=== PATIENT | male | born 1935 | race Caucasian/White ===

== ENCOUNTER 2020-10-04 21:50 | Inpatient (IN) | payer MEDICARE ==
[~2020-10-04] VITALS: Ht 170.2 cm; Wt 95.3 kg
[~2020-10-04 21:50] MED LIST: COUMADIN3 MG PO; DEXILANT60 MG PO; DIOVAN160 MG PO; KOMBIGLYZE XR1 EAC1 PO; LEVOTHYROXINE PO; LOVANZA; TERAZOSIN HCL2 M1 PO; Z.0.ASPIR 8181 MG PO; Z.0.CLONIDINE HCL0.1 PO; Z.0.DIOVAN160 MG PO; Z.0.LIPITOR40 MG PO; Z.0.NIACIN500 MG PO; Z.0.PLAVIX75 MG PO; Z.0.TRILIPIX135 MG PO; [UNRECOGNIZED DRUG - OTHER] PO
[2020-10-04] MEDS ORDERED: ALBUTEROL SULF 0.083% NEB SOLN 3 ML NEB NEB STA (22:01)
[2020-10-04] MEDS ORDERED: IPRATROPIUM BROMIDE 0.02% 2.5 ML NEB NEB ONE (22:15)
[2020-10-04 22:24] LABS: BASOPHILS # (AUTO) 0.1 (0.0-0.1); BASOPHILS % 0.7 % (0.0-1.0); EOSINOPHILS # (AUTO) 0.4 (0.0-0.4); EOSINOPHILS % 3.1 % (0.0-6.0); HEMATOCRIT 37.7 % (38.2-49.6); HEMOGLOBIN 10.8 g/dL (14.0-18.0); LYMPHOCYTES % 17.2 % (18.0-39.1); MEAN CORPUSCULAR HEMOGLOBIN 21.1 pg (28-32); MEAN CORPUSCULAR HGB CONC 28.6 g/dL (31-35); MEAN CORPUSCULAR VOLUME 73.8 fL (81-99); MONOCYTES # (AUTO) 1.4 (0.2-0.8); MONOCYTES % 11.6 % (4.4-11.3); NEUTROPHILS # (AUTO) 7.8 (2.1-6.9); PLATELET COUNT 497 x10e3/uL (140-360); RED BLOOD COUNT 5.11 x10e6/uL (4.3-5.7); RED CELL DISTRIBUTION WIDTH 20.2 % (11.7-14.4)
[2020-10-04 22:41] LABS: ALBUMIN/GLOBULIN RATIO 0.7 (0.8-2.0); ANION GAP 18.6 mmol/L (8-16); CALCIUM 9.4 mg/dL (8.4-10.2); POTASSIUM 4.6 mmol/L (3.5-5.1)
[2020-10-04 22:48] LABS: CREATINE KINASE MB 3.2 ng/mL (0-5.0)
[2020-10-04] MEDS ORDERED: VANCOMYCIN 1GM/NS 250 ML 250 ML IV ONE (23:45)
[2020-10-05] VITALS (8 sets, daily range): BP systolic 112–153; BP diastolic 51–96
[2020-10-05] MEDS ORDERED: Vancomycin IV 1 GM VIAL ONE (00:17)
[2020-10-05] MEDS ORDERED: CEFEPIME HCL 1 GM VIAL ONE (00:18)
[2020-10-05] MEDS ORDERED: SODIUM CHLORIDE 0.9% 250ML 250 ML ONE (00:18)
[2020-10-05] MEDS ORDERED: SODIUM CHLORIDE 0.9% 50ML 50 ML ONE (00:19)
[2020-10-05] MEDS ORDERED: SODIUM CHLORIDE 0.9% 1000ML 1,000 ML IV SCH (00:45)
[2020-10-05] MEDS ORDERED: ACETAMINOPHEN 325 MG TAB PO PRN (00:45)
[2020-10-05] MEDS ORDERED: SODIUM CHLORIDE 0.9% 500ML 500 ML IV ONE (00:45)
[2020-10-05] MEDS ORDERED: SODIUM CHLORIDE FLUSH 10 ML SYR INJ PRN (00:45)
[2020-10-05] MEDS: ALBUTEROL/IPRATROPIUM 3 ML NEB NEB SCH ×6 (02:23→23:35)
[2020-10-05] MEDS ORDERED: ZETIA10 MG PO (04:46)
[2020-10-05] MEDS ORDERED: KOMBIGLYZE XR1 EAC2 PO (04:46)
[2020-10-05] MEDS ORDERED: WARFARIN SODIUM2 MG PO (04:46)
[2020-10-05] MEDS ORDERED: ARICEPT5 MG PO (04:46)
[2020-10-05] MEDS ORDERED: TRICOR145 MG PO (04:46)
[2020-10-05] MEDS ORDERED: WARFARIN SODIUM1 MG PO (04:46)
[2020-10-05] MEDS ORDERED: IRBESARTAN150 MG PO (04:46)
[2020-10-05] MEDS: CEFEPIME 1 GM in SODIUM CHLORIDE 0.9% 50ML 50 ML IV SCH ×3 (05:47→21:39)
[2020-10-05] MEDS ORDERED: METHYLPREDNISOLONE SOD SUCC 40 MG/ML VIAL 1ML IV SCH (06:00)
[2020-10-05 09:23] LABS: CREATINE KINASE MB 3.6 ng/mL (0-5.0)
[2020-10-05] MEDS ORDERED: DEXTROSE 50% SYRINGE 50 ML IV PRN (11:15)
[2020-10-05] MEDS: INSULIN LISPRO 100 UNIT/1 ML 3ML VIAL SQ SCH ×3 (11:30→21:58)
[2020-10-05 11:38] LABS: BASOPHILS % 0.3 % (0.0-1.0); HEMATOCRIT 35.3 % (38.2-49.6); HEMOGLOBIN 10.1 g/dL (14.0-18.0); LYMPHOCYTES # (AUTO) 0.7 (1.0-3.2); LYMPHOCYTES % 9.9 % (18.0-39.1); MEAN CORPUSCULAR HEMOGLOBIN 21.7 pg (28-32); MEAN CORPUSCULAR HGB CONC 28.6 g/dL (31-35); MEAN CORPUSCULAR VOLUME 75.8 fL (81-99); MONOCYTES # (AUTO) 0.2 (0.2-0.8); MONOCYTES % 2.2 % (4.4-11.3); NEUTROPHILS # (AUTO) 6.5 (2.1-6.9); NEUTROPHILS % 87.1 % (38.7-80.0); PLATELET COUNT 456 x10e3/uL (140-360); RED BLOOD COUNT 4.66 x10e6/uL (4.3-5.7); RED CELL DISTRIBUTION WIDTH 19.8 % (11.7-14.4)
[2020-10-05] MEDS ORDERED: FUROSEMIDE INJ 10 MG/ML 4 ML VIAL IV ONE (12:00)
[2020-10-05 12:08] LABS: ALBUMIN 2.7 g/dL (3.5-5.0); ALBUMIN/GLOBULIN RATIO 0.6 (0.8-2.0); ANION GAP 21.1 mmol/L (8-16); CALCIUM 9.1 mg/dL (8.4-10.2); CREATININE, SERUM 1.76 mg/dL (0.72-1.25); POTASSIUM 5.1 mmol/L (3.5-5.1)
[2020-10-05] MEDS: METHYLPREDNISOLONE SOD SUCC 40 MG/ML VIAL 1ML IV SCH ×2 (12:33→21:38)
[2020-10-05] MEDS: LEVOFLOXACIN 250MG/D5W 50ML 50 ML IV SCH (12:33)
[2020-10-05] MEDS ORDERED: WARFARIN SOD 1 MG TAB PO SCH (17:00)
[2020-10-05 17:10] LABS: PROTHROMBIN TIME 110.1 seconds (11.9-14.5)
[2020-10-05 17:11] LABS: INR 14.82
[2020-10-05] MEDS ORDERED: PHYTONADIONE 5 MG TAB PO ONE (19:00)
[2020-10-05] MEDS: ATORVASTATIN 40 MG TAB PO SCH (21:00)
[2020-10-05] MEDS: IRBESARTAN 150 MG TAB PO SCH (21:00)
[2020-10-05] MEDS: DONEPEZIL HCL 5 MG TAB PO SCH (21:00)
[2020-10-05] MEDS ORDERED: PHYTONADIONE 1 MG/0.5 ML AMP INJ ONE (21:00)
[2020-10-05] MEDS ORDERED: PHYTONADIONE 10MG/ML 1 ML ONE (21:37)
[2020-10-05] MEDS: FUROSEMIDE INJ 10 MG/ML 4 ML VIAL IV SCH (21:38)
[2020-10-06] VITALS (7 sets, daily range): BP systolic 121–157; BP diastolic 62–77
[2020-10-06 04:59] LABS: BASOPHILS % 0.1 % (0.0-1.0); HEMATOCRIT 30.1 % (38.2-49.6); HEMOGLOBIN 8.8 g/dL (14.0-18.0); LYMPHOCYTES # (AUTO) 0.7 (1.0-3.2); MEAN CORPUSCULAR HEMOGLOBIN 21.8 pg (28-32); MEAN CORPUSCULAR HGB CONC 29.2 g/dL (31-35); MEAN CORPUSCULAR VOLUME 74.5 fL (81-99); MONOCYTES # (AUTO) 0.9 (0.2-0.8); MONOCYTES % 6.1 % (4.4-11.3); NEUTROPHILS # (AUTO) 12.4 (2.1-6.9); NEUTROPHILS % 88.2 % (38.7-80.0); PLATELET COUNT 431 x10e3/uL (140-360); RED BLOOD COUNT 4.04 x10e6/uL (4.3-5.7); RED CELL DISTRIBUTION WIDTH 19.7 % (11.7-14.4)
[2020-10-06 05:14] LABS: INR 5.28; PROTHROMBIN TIME 49.2 seconds (11.9-14.5)
[2020-10-06 05:21] LABS: ALBUMIN 2.6 g/dL (3.5-5.0); ALBUMIN/GLOBULIN RATIO 0.7 (0.8-2.0); CALCIUM 8.6 mg/dL (8.4-10.2); CREATININE, SERUM 1.95 mg/dL (0.72-1.25)
[2020-10-06] MEDS ORDERED: CEFEPIME HCL 1 GM VIAL ONE (05:22)
[2020-10-06] MEDS: LEVOTHYROXINE SODIUM 75 MCG TAB PO SCH (05:23)
[2020-10-06] MEDS: CEFEPIME 1 GM in SODIUM CHLORIDE 0.9% 50ML 50 ML IV SCH ×3 (05:23→22:21)
[2020-10-06] MEDS: ALBUTEROL/IPRATROPIUM 3 ML NEB NEB SCH ×4 (07:30→22:50)
[2020-10-06] MEDS: INSULIN LISPRO 100 UNIT/1 ML 3ML VIAL SQ SCH ×4 (07:30→21:00)
[2020-10-06] MEDS: EZETIMIBE 10 MG TAB PO SCH (07:34)
[2020-10-06] MEDS: FUROSEMIDE INJ 10 MG/ML 4 ML VIAL IV SCH ×2 (08:16→21:16)
[2020-10-06] MEDS: FENOFIBRATE 200 MG PO SCH (08:16)
[2020-10-06] MEDS: PANTOPRAZOLE SOD 40 MG TABEC PO SCH (08:16)
[2020-10-06] MEDS: METHYLPREDNISOLONE SOD SUCC 40 MG/ML VIAL 1ML IV SCH ×2 (08:16→21:16)
[2020-10-06 08:46] LABS: ANISOCYTOSIS MODERATE; HYPOCHROMASIA SLIGHT; MICROCYTOSIS MODERATE; OVALOCYTES FEW; PLATELET ESTIMATE ADEQUATE; PLATELET MORPHOLOGY COMMENT NORMAL; RBC MORPHOLOGY COMMENT ABNORMAL
[2020-10-06] MEDS: LEVOFLOXACIN 250MG/D5W 50ML 50 ML IV SCH (12:22)
[2020-10-06] MEDS ORDERED: WARFARIN SOD 2 MG TAB PO SCH (17:00)
[2020-10-06] MEDS: DONEPEZIL HCL 5 MG TAB PO SCH (21:00)
[2020-10-06] MEDS: ATORVASTATIN 40 MG TAB PO SCH (21:00)
[2020-10-06] MEDS: IRBESARTAN 150 MG TAB PO SCH (21:00)
[2020-10-07] VITALS (8 sets, daily range): BP systolic 97–152; BP diastolic 51–87
[2020-10-07] MEDS: ALBUTEROL/IPRATROPIUM 3 ML NEB NEB SCH ×6 (03:00→23:55)
[2020-10-07 04:52] LABS: BASOPHILS % 0.1 % (0.0-1.0); HEMATOCRIT 32.2 % (38.2-49.6); HEMOGLOBIN 9.4 g/dL (14.0-18.0); LYMPHOCYTES # (AUTO) 0.7 (1.0-3.2); LYMPHOCYTES % 4.5 % (18.0-39.1); MEAN CORPUSCULAR HEMOGLOBIN 21.5 pg (28-32); MEAN CORPUSCULAR HGB CONC 29.2 g/dL (31-35); MEAN CORPUSCULAR VOLUME 73.5 fL (81-99); MONOCYTES # (AUTO) 0.9 (0.2-0.8); MONOCYTES % 5.8 % (4.4-11.3); NEUTROPHILS # (AUTO) 12.9 (2.1-6.9); NEUTROPHILS % 88.7 % (38.7-80.0); PLATELET COUNT 496 x10e3/uL (140-360); RED BLOOD COUNT 4.38 x10e6/uL (4.3-5.7); RED CELL DISTRIBUTION WIDTH 19.8 % (11.7-14.4)
[2020-10-07 05:16] LABS: ANION GAP 17.8 mmol/L (8-16); CALCIUM 8.8 mg/dL (8.4-10.2); POTASSIUM 4.8 mmol/L (3.5-5.1)
[2020-10-07] MEDS: CEFEPIME 1 GM in SODIUM CHLORIDE 0.9% 50ML 50 ML IV SCH ×3 (05:49→21:08)
[2020-10-07] MEDS: LEVOTHYROXINE SODIUM 75 MCG TAB PO SCH (05:49)
[2020-10-07] MEDS: INSULIN LISPRO 100 UNIT/1 ML 3ML VIAL SQ SCH ×4 (07:30→21:22)
[2020-10-07] MEDS: PANTOPRAZOLE SOD 40 MG TABEC PO SCH (08:27)
[2020-10-07] MEDS: FENOFIBRATE 200 MG PO SCH (08:27)
[2020-10-07] MEDS: FUROSEMIDE INJ 10 MG/ML 4 ML VIAL IV SCH (08:30)
[2020-10-07] MEDS: METHYLPREDNISOLONE SOD SUCC 40 MG/ML VIAL 1ML IV SCH ×2 (08:30→21:08)
[2020-10-07] MEDS: EZETIMIBE 10 MG TAB PO SCH (08:30)
[2020-10-07 08:35] LABS: INR 1.72; PROTHROMBIN TIME 20.5 seconds (11.9-14.5)
[2020-10-07] MEDS: LEVOFLOXACIN 250MG/D5W 50ML 50 ML IV SCH (11:22)
[2020-10-07] MEDS ORDERED: WARFARIN SOD 1 MG TAB PO ONE (11:30)
[2020-10-07] MEDS ORDERED: WARFARIN SOD 1 MG TAB PO SCH (17:00)
[2020-10-07] MEDS ORDERED: WARFARIN SOD 2 MG TAB PO SCH (17:00)
[2020-10-07] MEDS: IRBESARTAN 150 MG TAB PO SCH (21:00)
[2020-10-07] MEDS: DONEPEZIL HCL 5 MG TAB PO SCH (21:00)
[2020-10-07] MEDS: ATORVASTATIN 40 MG TAB PO SCH (21:00)
[2020-10-08] VITALS (8 sets, daily range): BP systolic 108–168; BP diastolic 44–74
[2020-10-08] MEDS: ALBUTEROL/IPRATROPIUM 3 ML NEB NEB SCH ×6 (04:10→23:45)
[2020-10-08] MEDS: CEFEPIME 1 GM in SODIUM CHLORIDE 0.9% 50ML 50 ML IV SCH ×3 (05:09→21:35)
[2020-10-08] MEDS: LEVOTHYROXINE SODIUM 75 MCG TAB PO SCH (05:14)
[2020-10-08 05:16] LABS: BASOPHILS % 0.1 % (0.0-1.0); HEMATOCRIT 32.2 % (38.2-49.6); HEMOGLOBIN 9.5 g/dL (14.0-18.0); LYMPHOCYTES # (AUTO) 0.7 (1.0-3.2); LYMPHOCYTES % 5.7 % (18.0-39.1); MEAN CORPUSCULAR HEMOGLOBIN 21.4 pg (28-32); MEAN CORPUSCULAR HGB CONC 29.5 g/dL (31-35); MEAN CORPUSCULAR VOLUME 72.7 fL (81-99); MONOCYTES # (AUTO) 0.8 (0.2-0.8); MONOCYTES % 6.6 % (4.4-11.3); NEUTROPHILS # (AUTO) 10.8 (2.1-6.9); NEUTROPHILS % 86.2 % (38.7-80.0); PLATELET COUNT 436 x10e3/uL (140-360); RED BLOOD COUNT 4.43 x10e6/uL (4.3-5.7); RED CELL DISTRIBUTION WIDTH 19.8 % (11.7-14.4)
[2020-10-08 05:50] LABS: ANION GAP 17.8 mmol/L (8-16); CALCIUM 8.9 mg/dL (8.4-10.2); CREATININE, SERUM 1.85 mg/dL (0.72-1.25); POTASSIUM 4.8 mmol/L (3.5-5.1)
[2020-10-08 07:13] LABS: INR 1.96; PROTHROMBIN TIME 22.7 seconds (11.9-14.5)
[2020-10-08] MEDS: PANTOPRAZOLE SOD 40 MG TABEC PO SCH (08:58)
[2020-10-08] MEDS: FENOFIBRATE 200 MG PO SCH (08:58)
[2020-10-08] MEDS: INSULIN LISPRO 100 UNIT/1 ML 3ML VIAL SQ SCH ×4 (08:59→22:14)
[2020-10-08] MEDS: METHYLPREDNISOLONE SOD SUCC 40 MG/ML VIAL 1ML IV SCH ×2 (08:59→21:34)
[2020-10-08] MEDS: EZETIMIBE 10 MG TAB PO SCH (09:01)
[2020-10-08] MEDS: LEVOFLOXACIN 250MG/D5W 50ML 50 ML IV SCH (12:27)
[2020-10-08 16:10] LABS: PHOSPHORUS 2.6 MG/DL (2.3-4.7)
[2020-10-08] MEDS: IRBESARTAN 150 MG TAB PO SCH (21:00)
[2020-10-08] MEDS: ATORVASTATIN 40 MG TAB PO SCH (21:00)
[2020-10-08] MEDS: DONEPEZIL HCL 5 MG TAB PO SCH (21:00)
[2020-10-08 21:42] LABS: EOSINOPHIL SMEAR,URINE NONE SEEN (NONE SEEN)
[2020-10-08 21:56] LABS: CREATININE,URINE RANDOM 67.49 mg/dL (63-166)
[2020-10-08] MEDS: INSULIN GLARGINE 100 UNITS/ML VIAL SQ SCH (22:14)
[2020-10-09] VITALS (8 sets, daily range): BP systolic 115–177; BP diastolic 55–98
[2020-10-09] MEDS: ALBUTEROL/IPRATROPIUM 3 ML NEB NEB SCH ×6 (00:30→19:15)
[2020-10-09 05:00] LABS: BASOPHILS % 0.1 % (0.0-1.0); HEMATOCRIT 31.1 % (38.2-49.6); HEMOGLOBIN 9.4 g/dL (14.0-18.0); LYMPHOCYTES # (AUTO) 0.7 (1.0-3.2); LYMPHOCYTES % 5.5 % (18.0-39.1); MEAN CORPUSCULAR HEMOGLOBIN 21.6 pg (28-32); MEAN CORPUSCULAR HGB CONC 30.2 g/dL (31-35); MEAN CORPUSCULAR VOLUME 71.3 fL (81-99); MONOCYTES # (AUTO) 0.8 (0.2-0.8); MONOCYTES % 6.3 % (4.4-11.3); NEUTROPHILS # (AUTO) 10.9 (2.1-6.9); NEUTROPHILS % 86.5 % (38.7-80.0); PLATELET COUNT 502 x10e3/uL (140-360); RED BLOOD COUNT 4.36 x10e6/uL (4.3-5.7); RED CELL DISTRIBUTION WIDTH 19.7 % (11.7-14.4)
[2020-10-09 05:16] LABS: INR 2.09; PROTHROMBIN TIME 23.8 seconds (11.9-14.5)
[2020-10-09 05:30] LABS: ANION GAP 16.2 mmol/L (8-16); CALCIUM 9.2 mg/dL (8.4-10.2); CREATININE, SERUM 1.56 mg/dL (0.72-1.25); POTASSIUM 5.2 mmol/L (3.5-5.1)
[2020-10-09] MEDS: CEFEPIME 1 GM in SODIUM CHLORIDE 0.9% 50ML 50 ML IV SCH ×3 (06:00→22:32)
[2020-10-09] MEDS: LEVOTHYROXINE SODIUM 75 MCG TAB PO SCH (06:00)
[2020-10-09] MEDS: FENOFIBRATE 200 MG PO SCH (09:00)
[2020-10-09] MEDS: METHYLPREDNISOLONE SOD SUCC 40 MG/ML VIAL 1ML IV SCH ×2 (09:56→20:46)
[2020-10-09] MEDS: PANTOPRAZOLE SOD 40 MG TABEC PO SCH (09:56)
[2020-10-09] MEDS: EZETIMIBE 10 MG TAB PO SCH (09:56)
[2020-10-09] MEDS: INSULIN LISPRO 100 UNIT/1 ML 3ML VIAL SQ SCH ×4 (10:10→20:57)
[2020-10-09] MEDS: LEVOFLOXACIN 250MG/D5W 50ML 50 ML IV SCH (11:56)
[2020-10-09] MEDS: IRBESARTAN 150 MG TAB PO SCH (20:46)
[2020-10-09] MEDS: ATORVASTATIN 40 MG TAB PO SCH (20:46)
[2020-10-09] MEDS: DONEPEZIL HCL 5 MG TAB PO SCH (20:46)
[2020-10-09] MEDS: INSULIN GLARGINE 100 UNITS/ML VIAL SQ SCH (22:33)
[2020-10-10] VITALS: BP 138/58
[2020-10-10 04:00] VITALS: BP 139/64
[2020-10-10 05:53] LABS: BASOPHILS % 0.1 % (0.0-1.0); HEMATOCRIT 30.2 % (38.2-49.6); LYMPHOCYTES # (AUTO) 0.8 (1.0-3.2); LYMPHOCYTES % 6.3 % (18.0-39.1); MEAN CORPUSCULAR HEMOGLOBIN 21.5 pg (28-32); MEAN CORPUSCULAR HGB CONC 29.8 g/dL (31-35); MEAN CORPUSCULAR VOLUME 72.1 fL (81-99); MONOCYTES # (AUTO) 0.9 (0.2-0.8); MONOCYTES % 7.1 % (4.4-11.3); NEUTROPHILS # (AUTO) 10.9 (2.1-6.9); NEUTROPHILS % 83.8 % (38.7-80.0); PLATELET COUNT 493 x10e3/uL (140-360); RED BLOOD COUNT 4.19 x10e6/uL (4.3-5.7); RED CELL DISTRIBUTION WIDTH 19.9 % (11.7-14.4)
[2020-10-10 06:39] LABS: ANION GAP 14.1 mmol/L (8-16); CALCIUM 9.4 mg/dL (8.4-10.2); CREATININE, SERUM 1.42 mg/dL (0.72-1.25); POTASSIUM 5.1 mmol/L (3.5-5.1)
[2020-10-10] MEDS: LEVOTHYROXINE SODIUM 75 MCG TAB PO SCH (06:39)
[2020-10-10] MEDS: CEFEPIME 1 GM in SODIUM CHLORIDE 0.9% 50ML 50 ML IV SCH ×2 (06:39→14:41)
[2020-10-10] MEDS: ALBUTEROL/IPRATROPIUM 3 ML NEB NEB SCH ×3 (07:21→15:00)
[2020-10-10 07:33] LABS: INR 1.76; PROTHROMBIN TIME 20.8 seconds (11.9-14.5)
[2020-10-10 08:00] VITALS: BP 139/64
[2020-10-10 08:02] VITALS: BP 166/64
[2020-10-10 08:45] LABS: RBC MORPHOLOGY COMMENT ABNORMAL
[2020-10-10 08:48] LABS: ELLIPTOCYTE, RBC MODERATE; MICROCYTOSIS MARKED; POIKILOCYTOSIS MODERATE
[2020-10-10] MEDS: FENOFIBRATE 200 MG PO SCH (10:27)
[2020-10-10] MEDS: PANTOPRAZOLE SOD 40 MG TABEC PO SCH (10:27)
[2020-10-10] MEDS: METHYLPREDNISOLONE SOD SUCC 40 MG/ML VIAL 1ML IV SCH (10:27)
[2020-10-10] MEDS: EZETIMIBE 10 MG TAB PO SCH (10:28)
[2020-10-10] MEDS: INSULIN LISPRO 100 UNIT/1 ML 3ML VIAL SQ SCH ×2 (10:29→14:43)
[2020-10-10 11:24] VITALS: BP 167/61
[2020-10-10] MEDS: LEVOFLOXACIN 250MG/D5W 50ML 50 ML IV SCH (12:00)
[2020-10-10 14:06] LABS: BODY FLUID APPEARANCE TURBID; BODY FLUID COLOR RED; BODY FLUID TYPE PLEURAL; RBC,BODY FLUID 1472000 cells/uL; WBC,BODY FLUID 1041 cells/uL
[2020-10-10 14:07] LABS: EOSINOPHILS,BODY FLUID 2 %; LYMPHOCYTES,BODY FLUID 61 %; MONO/MACROPHG,BODY FLUID 9 %; NEUTROPHILS,BODY FLUID 28 %
[2020-10-10] MEDS ORDERED: COVID-19 VACC, MRNA(MODERNA)/PF 100 MCG/0.5 ML VIAL IM ONE (15:00)
[2020-10-10] MEDS ORDERED: KEFLEX125 MG/5 M PO (15:02)
[2020-10-10 15:25] VITALS: BP 151/85
[2020-10-13 16:09] LABS: ALPHA 2 GLOBULIN URINE PEP 8.8 % (.)
== END 2020-10-10 17:50 | disposition home or self-care (01) | DRG 871 ==
LOC: ER 22:03 → ERHOLD 10-05 02:10 → MED/SURG 10-05 03:06
PROC: 0W993ZZ Drainage of Right Pleural Cavity, Percutaneous Approach (ICD-10-PCS; principal; 2020-10-10)
DX: A41.9 Sepsis, unspecified organism (principal); I50.33 Acute on chronic diastolic (congestive) heart failure; J15.6 Pneumonia due to other Gram-negative bacteria; N17.9 Acute kidney failure, unspecified; I13.0 Hypertensive heart and chronic kidney disease with heart failure and stage 1 through stage 4 chronic kidney disease, or unspecified chronic kidney disease; J44.0 Chronic obstructive pulmonary disease with (acute) lower respiratory infection; J90 Pleural effusion, not elsewhere classified; D68.9 Coagulation defect, unspecified; R65.20 Severe sepsis without septic shock; Z79.01 Long term (current) use of anticoagulants; Z95.2 Presence of prosthetic heart valve; E11.22 Type 2 diabetes mellitus with diabetic chronic kidney disease; N18.30 Chronic kidney disease, stage 3 unspecified; I25.10 Atherosclerotic heart disease of native coronary artery without angina pectoris; E87.6 Hypokalemia; E78.5 Hyperlipidemia, unspecified; Z87.891 Personal history of nicotine dependence; F06.8 Other specified mental disorders due to known physiological condition; I48.0 Paroxysmal atrial fibrillation; K21.9 Gastro-esophageal reflux disease without esophagitis; Z20.822 Contact with and (suspected) exposure to COVID-19
CPT/HCPCS: 32555; 36415; 71045; 71046; 76770; 80048; 80053; 81015; 82550; 82553; 82570; 82948; 83605; 83735; 83880; 84100; 84166; 84443; 84484; 84550; 85025; 85610; 86021; 86160; 86431; 87040; 87070; 87205; 87340; 88112; 88305; 89051; 91301; 93005; 93306; 94640; 96367; 96372; 96375; 96376; 97139; 99251; 99284; J0692; J1815; J1940; J1956; J2920; J3370; J3430; J7030; J7040; J7050; U0002

== ENCOUNTER 2021-10-28 10:26 | Emergency (ER) | payer MEDICARE ==
[~2021-10-28] VITALS: Ht 322.6 cm; Wt 95.3 kg
[~2021-10-28 10:26] MED LIST changes: +ARICEPT5 MG PO; +IRBESARTAN150 MG PO; +KEFLEX125 MG/5 M PO; +KOMBIGLYZE XR1 EAC2 PO; +TRICOR145 MG PO; +WARFARIN SODIUM1 MG PO; +WARFARIN SODIUM2 MG PO; +ZETIA10 MG PO
[2021-10-28] MEDS ORDERED: SODIUM CHLORIDE 0.9% 500ML 500 ML IV ONE (10:45)
[2021-10-28 11:12] LABS: BASOPHILS % 0.6 % (0.0-1.0); EOSINOPHILS # (AUTO) 0.1 (0.0-0.4); EOSINOPHILS % 1.7 % (0.0-6.0); HEMATOCRIT 38.4 % (38.2-49.6); HEMOGLOBIN 11.4 g/dL (14.0-18.0); LYMPHOCYTES # (AUTO) 1.1 (1.0-3.2); LYMPHOCYTES % 14.9 % (18.0-39.1); MEAN CORPUSCULAR HEMOGLOBIN 22.2 pg (28-32); MEAN CORPUSCULAR HGB CONC 29.7 g/dL (31-35); MEAN CORPUSCULAR VOLUME 74.9 fL (81-99); MONOCYTES # (AUTO) 1.3 (0.2-0.8); MONOCYTES % 18.1 % (4.4-11.3); NEUTROPHILS # (AUTO) 4.6 (2.1-6.9); NEUTROPHILS % 64.4 % (38.7-80.0); PLATELET COUNT 276 x10e3/uL (140-360); RED BLOOD COUNT 5.13 x10e6/uL (4.3-5.7); RED CELL DISTRIBUTION WIDTH 19.8 % (11.7-14.4)
[2021-10-28 11:25] LABS: INR 1.77
[2021-10-28 11:26] LABS: PARTIAL THROMBOPLASTIN TIME 58.8 seconds (23.8-35.5)
[2021-10-28 11:35] LABS: ALBUMIN 3.1 g/dL (3.5-5.0); ALBUMIN/GLOBULIN RATIO 0.8 (0.8-2.0); ANION GAP 17.4 mmol/L (8-16); CALCIUM 8.9 mg/dL (8.4-10.2); CREATININE, SERUM 1.63 mg/dL (0.72-1.25); MAGNESIUM 1.8 MG/DL (1.3-2.1); POTASSIUM 4.4 mmol/L (3.5-5.1)
[2021-10-28 11:42] LABS: CREATINE KINASE MB 1.9 ng/mL (0-5.0)
[2021-10-28 12:06] LABS: CLARITY,URINE CLEAR (CLEAR); COLOR,URINE YELLOW (YELLOW); KETONES,URINE NEGATIVE (NEGATIVE); LEUKOCYTE ESTERASE ,URINE NEGATIVE (NEGATIVE); NITRITE,URINE NEGATIVE (NEGATIVE); PROTEIN,URINE DIPSTICK 2+ (NEGATIVE); URINE UROBILINOGEN 0.2 mg/dL (0.2 - 1)
[2021-10-28 12:14] LABS: BACTERIA,URINE FEW /HPF; EPITHELIAL CELLS,URINE FEW /LPF; RBC,URINE 0-5 /HPF (0-5); WBC,URINE (MAN) 0-5 /HPF (0-5)
[2021-10-28] MEDS ORDERED: DEXAMETHASONE SOD PHOS 10 MG/1 ML VIAL IV NR (12:45)
[2021-10-28] MEDS ORDERED: BEBTELOVIMAB 175 MG INJ IV ONE (12:45)
== END 2021-10-28 13:58 | disposition home or self-care (01) ==
LOC: ER 10:33
DX: R50.9 Fever, unspecified (principal); U07.1 COVID-19; R05.9 Cough, unspecified; E11.9 Type 2 diabetes mellitus without complications; E78.5 Hyperlipidemia, unspecified; I48.91 Unspecified atrial fibrillation; J44.9 Chronic obstructive pulmonary disease, unspecified; Z95.4 Presence of other heart-valve replacement; G30.9 Alzheimer's disease, unspecified; F02.80 Dementia in other diseases classified elsewhere, unspecified severity, without behavioral disturbance, psychotic disturbance, mood disturbance, and anxiety; G20 Parkinson's disease; R94.31 Abnormal electrocardiogram [ECG] [EKG]
CPT/HCPCS: 36415; 70450; 71045; 80053; 81001; 82550; 82553; 82948; 83735; 83880; 84484; 85025; 85610; 85730; 87040; 87071; 87086; 87205; 93005; 99284; J1100; J7040; U0002

== ENCOUNTER 2022-03-29 12:33 | Emergency (ER) | payer MEDICARE, OTHER ==
[~2022-03-29] VITALS: Ht 170.2 cm; Wt 95.3 kg
[2022-03-29 14:08] LABS: BASOPHILS % 0.4 % (0.0-1.0); EOSINOPHILS # (AUTO) 0.1 (0.0-0.4); EOSINOPHILS % 0.7 % (0.0-6.0); HEMATOCRIT 32.1 % (38.2-49.6); HEMOGLOBIN 9.2 g/dL (14.0-18.0); LYMPHOCYTES # (AUTO) 1.3 (1.0-3.2); LYMPHOCYTES % 11.6 % (18.0-39.1); MEAN CORPUSCULAR HEMOGLOBIN 24.9 pg (28-32); MEAN CORPUSCULAR HGB CONC 28.7 g/dL (31-35); MEAN CORPUSCULAR VOLUME 86.8 fL (81-99); MONOCYTES # (AUTO) 1.3 (0.2-0.8); MONOCYTES % 11.9 % (4.4-11.3); NEUTROPHILS # (AUTO) 8.3 (2.1-6.9); NEUTROPHILS % 75.1 % (38.7-80.0); PLATELET COUNT 422 x10e3/uL (140-360); RED CELL DISTRIBUTION WIDTH 20.2 % (11.7-14.4)
[2022-03-29 14:21] LABS: INR 3.52; PROTHROMBIN TIME 35.3 seconds (11.9-14.5)
[2022-03-29 14:29] LABS: ALBUMIN/GLOBULIN RATIO 0.8 (0.8-2.0); ANION GAP 15.3 mmol/L (8-16); CALCIUM 9.3 mg/dL (8.4-10.2); CREATININE, SERUM 1.57 mg/dL (0.72-1.25); POTASSIUM 4.3 mmol/L (3.5-5.1)
[2022-03-29] MEDS ORDERED: MIRALAX17 GM PO (16:03)
== END 2022-03-29 17:03 | disposition home or self-care (01) ==
LOC: ER 12:45
DX: S70.12XA Contusion of left thigh, initial encounter (principal); W01.0XXA Fall on same level from slipping, tripping and stumbling without subsequent striking against object, initial encounter; Y93.01 Activity, walking, marching and hiking; Y92.89 Other specified places as the place of occurrence of the external cause; K59.00 Constipation, unspecified; K40.90 Unilateral inguinal hernia, without obstruction or gangrene, not specified as recurrent; E11.65 Type 2 diabetes mellitus with hyperglycemia; E78.5 Hyperlipidemia, unspecified; J44.9 Chronic obstructive pulmonary disease, unspecified; I48.91 Unspecified atrial fibrillation; G30.9 Alzheimer's disease, unspecified; F02.80 Dementia in other diseases classified elsewhere, unspecified severity, without behavioral disturbance, psychotic disturbance, mood disturbance, and anxiety; G20 Parkinson's disease; R94.31 Abnormal electrocardiogram [ECG] [EKG]; Z95.1 Presence of aortocoronary bypass graft
CPT/HCPCS: 36415; 70450; 72192; 80053; 84484; 85025; 85610; 93005; 99284

== ENCOUNTER 2022-05-15 00:26 | Emergency (ER) | payer MEDICARE ==
[~2022-05-15] VITALS: Ht 170.2 cm; Wt 95.3 kg
[~2022-05-15 00:26] MED LIST changes: +MIRALAX17 GM PO
[2022-05-15 01:03] LABS: BASOPHILS # (AUTO) 0.1 (0.0-0.1); BASOPHILS % 0.8 % (0.0-1.0); EOSINOPHILS # (AUTO) 0.3 (0.0-0.4); EOSINOPHILS % 3.2 % (0.0-6.0); HEMATOCRIT 30.1 % (38.2-49.6); HEMOGLOBIN 8.4 g/dL (14.0-18.0); LYMPHOCYTES # (AUTO) 1.5 (1.0-3.2); LYMPHOCYTES % 17.5 % (18.0-39.1); MEAN CORPUSCULAR HEMOGLOBIN 23.8 pg (28-32); MEAN CORPUSCULAR HGB CONC 27.9 g/dL (31-35); MEAN CORPUSCULAR VOLUME 85.3 fL (81-99); MONOCYTES # (AUTO) 1.1 (0.2-0.8); MONOCYTES % 12.7 % (4.4-11.3); NEUTROPHILS # (AUTO) 5.6 (2.1-6.9); NEUTROPHILS % 65.5 % (38.7-80.0); PLATELET COUNT 484 x10e3/uL (140-360); RED BLOOD COUNT 3.53 x10e6/uL (4.3-5.7); RED CELL DISTRIBUTION WIDTH 19.8 % (11.7-14.4)
[2022-05-15 01:21] LABS: ALBUMIN 2.5 g/dL (3.5-5.0); ALBUMIN/GLOBULIN RATIO 0.6 (0.8-2.0); ANION GAP 15.6 mmol/L (8-16); CALCIUM 9.3 mg/dL (8.4-10.2); CREATININE, SERUM 1.03 mg/dL (0.72-1.25); POTASSIUM 4.6 mmol/L (3.5-5.1)
== END 2022-05-15 06:42 | disposition home or self-care (01) ==
LOC: ER 00:30
DX: R05.9 Cough, unspecified (principal); Z20.822 Contact with and (suspected) exposure to COVID-19; E11.9 Type 2 diabetes mellitus without complications; E78.5 Hyperlipidemia, unspecified; I48.91 Unspecified atrial fibrillation; J44.9 Chronic obstructive pulmonary disease, unspecified; Z95.4 Presence of other heart-valve replacement; G20 Parkinson's disease; G30.9 Alzheimer's disease, unspecified; F02.80 Dementia in other diseases classified elsewhere, unspecified severity, without behavioral disturbance, psychotic disturbance, mood disturbance, and anxiety; Z95.1 Presence of aortocoronary bypass graft
CPT/HCPCS: 36415; 71046; 80053; 85025; 87400; 99283; U0002

== ENCOUNTER 2024-05-21 21:08 | Inpatient (IN) | payer MEDICARE ==
[~2024-05-21] VITALS: Ht 170.2 cm; Wt 68.3 kg
[2024-05-21 21:08] VITALS: TEMP 98.3
[2024-05-21 21:48] LABS: BASOPHILS # (AUTO) 0.1 (0.0-0.1); BASOPHILS % 0.5 % (0.0-1.0); EOSINOPHILS # (AUTO) 0.2 (0.0-0.4); EOSINOPHILS % 1.8 % (0.0-6.0); HEMATOCRIT 33.8 % (38.2-49.6); HEMOGLOBIN 10.4 g/dL (14.0-18.0); LYMPHOCYTES # (AUTO) 0.8 (1.0-3.2); LYMPHOCYTES % 8.9 % (18.0-39.1); MEAN CORPUSCULAR HEMOGLOBIN 24.5 pg (28-32); MEAN CORPUSCULAR HGB CONC 30.8 g/dL (31-35); MEAN CORPUSCULAR VOLUME 79.5 fL (81-99); MONOCYTES # (AUTO) 1.1 (0.2-0.8); MONOCYTES % 11.3 % (4.4-11.3); NEUTROPHILS # (AUTO) 7.3 (2.1-6.9); NEUTROPHILS % 77.2 % (38.7-80.0); PLATELET COUNT 252 x10e3/uL (140-360); RED BLOOD COUNT 4.25 x10e6/uL (4.3-5.7); RED CELL DISTRIBUTION WIDTH 19.8 % (11.7-14.4); WHITE BLOOD COUNT 9.47 x10e3/uL (4.8-10.8)
[2024-05-21 22:03] LABS: INR 2.67; PROTHROMBIN TIME 29.7 seconds (11.9-14.5)
[2024-05-21 22:04] LABS: INFLUENZA A AG NEGATIVE (NEGATIVE); PARTIAL THROMBOPLASTIN TIME 51.9 seconds (23.8-35.5)
[2024-05-21 22:05] LABS: CORONAVIRUS COVID-19 AG NEGATIVE (NEGATIVE); INFLUENZA B AG NEGATIVE (NEGATIVE)
[2024-05-21 22:12] LABS: ALBUMIN 2.7 g/dL (3.5-5.0); ALBUMIN/GLOBULIN RATIO 0.6 (0.8-2.0); ANION GAP 17.2 mmol/L (8-16); CALCIUM 8.8 mg/dL (8.4-10.2); CREATININE, SERUM 1.84 mg/dL (0.72-1.25); POTASSIUM 4.2 mmol/L (3.5-5.1); TOTAL PROTEIN 7.1 g/dL (6.5-8.1)
[2024-05-21] MEDS ORDERED: FAMOTIDINE 20 MG TAB PO PRN (23:45)
[2024-05-21] MEDS ORDERED: SODIUM CHLORIDE FLUSH 10 ML SYR INJ PRN (23:45)
[2024-05-21] MEDS ORDERED: ONDANSETRON HCL INJ 2MG/ML 2ML 2 MG/ML VIAL IV PRN (23:45)
[2024-05-22] VITALS (18 sets, daily range): BP systolic 105–155; BP diastolic 34–90; PULSE 64–80; RESP 20–36; TEMP 98.2–98.8; O2SAT 95–100
[2024-05-22] MEDS: FUROSEMIDE INJ 10 MG/ML 4 ML VIAL IV ONE (00:09)
[2024-05-22] MEDS ORDERED: CYMBALTA30 MG PO (01:47)
[2024-05-22] MEDS ORDERED: [UNRECOGNIZED DRUG - OTHER] PO (01:47)
[2024-05-22] MEDS: INSULIN REGULAR, HUMAN 100 UNIT/1 ML SQ SCH (07:30)
[2024-05-22] MEDS ORDERED: POLYETHYLENE GLYCOL 3350 17 GM PACK PO PRN (09:30)
[2024-05-22 09:34] LABS: BASOPHILS # (AUTO) 0.1 (0.0-0.1); BASOPHILS % 0.5 % (0.0-1.0); EOSINOPHILS # (AUTO) 0.2 (0.0-0.4); EOSINOPHILS % 1.6 % (0.0-6.0); HEMATOCRIT 34.5 % (38.2-49.6); HEMOGLOBIN 10.5 g/dL (14.0-18.0); LYMPHOCYTES # (AUTO) 0.9 (1.0-3.2); LYMPHOCYTES % 9.3 % (18.0-39.1); MEAN CORPUSCULAR HEMOGLOBIN 24.5 pg (28-32); MEAN CORPUSCULAR HGB CONC 30.4 g/dL (31-35); MEAN CORPUSCULAR VOLUME 80.6 fL (81-99); MONOCYTES # (AUTO) 1.2 (0.2-0.8); MONOCYTES % 12.7 % (4.4-11.3); NEUTROPHILS % 75.5 % (38.7-80.0); PLATELET COUNT 290 x10e3/uL (140-360); RED BLOOD COUNT 4.28 x10e6/uL (4.3-5.7); RED CELL DISTRIBUTION WIDTH 19.5 % (11.7-14.4); WHITE BLOOD COUNT 9.29 x10e3/uL (4.8-10.8)
[2024-05-22 09:57] LABS: ALBUMIN 2.4 g/dL (3.5-5.0); ALBUMIN/GLOBULIN RATIO 0.6 (0.8-2.0); BILIRUBIN,TOTAL 0.9 mg/dL (0.2-1.2); CALCIUM 8.9 mg/dL (8.4-10.2); CREATININE, SERUM 1.67 mg/dL (0.72-1.25); TOTAL PROTEIN 6.6 g/dL (6.5-8.1)
[2024-05-22 10:04] LABS: PHOSPHORUS 3.8 MG/DL (2.3-4.7)
[2024-05-22 10:26] LABS: THYROID STIMULATING HORMONE 6.752 uIU/mL (0.350-4.940)
[2024-05-22 10:35] LABS: FERRITIN 92.21 ng/mL (21.81-274.66)
[2024-05-22 10:37] LABS: FOLATE 15.1 ng/mL (7.0-15.4)
[2024-05-22] MEDS: FUROSEMIDE INJ 10 MG/ML 4 ML VIAL IV SCH (11:34)
[2024-05-22] MEDS: EZETIMIBE 10 MG TAB PO SCH (11:57)
[2024-05-22] MEDS: PANTOPRAZOLE SOD 40 MG TABEC PO SCH (11:57)
[2024-05-22] MEDS: FENOFIBRATE 200MG PO SCH (11:58)
[2024-05-22] MEDS: METHYLPREDNISOLONE SOD SUCC 40 MG/ML VIAL 1ML IV ONE (12:12)
[2024-05-22] MEDS: Doxycycline IV 100 MG in SODIUM CHLORIDE 0.9% 100 ML IV SCH (12:12)
[2024-05-22] MEDS: HYDRALAZINE HCL 20 MG/ML VIAL IV PRN (12:13)
[2024-05-22] MEDS: DULOXETINE HCL 30 MG DELAYED RELEASE PO SCH (13:04)
[2024-05-22 13:17] LABS: ABG HCO3 28 mmol/L (22-26); ABG PCO2 39 mmHg (35-45); ABG PH 7.46 (7.35-7.45); ABG PO2 69 mmHg (80-105); ABG TCO2 29
[2024-05-22] MEDS ORDERED: LEVOTHYROXINE75 MC1 PO (13:32)
[2024-05-22] MEDS: LORAZEPAM INJ 2 MG/ML VIAL IV ONE (15:09)
[2024-05-22] MEDS ORDERED: DULOXETINE HCL 30 MG DELAYED RELEASE PO SCH ×2 (17:00)
[2024-05-22] MEDS: ATORVASTATIN 40 MG TAB PO SCH (20:13)
[2024-05-22] MEDS: DONEPEZIL HCL 5 MG TAB PO SCH (20:13)
[2024-05-22] MEDS: IRBESARTAN 150 MG TAB PO SCH (20:14)
[2024-05-23] VITALS (18 sets, daily range): BP systolic 118–163; BP diastolic 33–54; PULSE 62–78; RESP 18–36; TEMP 97.5–98.6; O2SAT 95–100
[2024-05-23] MEDS: LEVOTHYROXINE SODIUM 75 MCG TAB PO SCH (05:12)
[2024-05-23 06:42] LABS: BASOPHILS % 0.2 % (0.0-1.0); EOSINOPHILS % 0.2 % (0.0-6.0); HEMATOCRIT 33.1 % (38.2-49.6); HEMOGLOBIN 10.2 g/dL (14.0-18.0); LYMPHOCYTES % 11.1 % (18.0-39.1); MEAN CORPUSCULAR HEMOGLOBIN 24.5 pg (28-32); MEAN CORPUSCULAR HGB CONC 30.8 g/dL (31-35); MEAN CORPUSCULAR VOLUME 79.6 fL (81-99); MONOCYTES % 11.7 % (4.4-11.3); NEUTROPHILS # (AUTO) 6.7 (2.1-6.9); NEUTROPHILS % 76.5 % (38.7-80.0); PLATELET COUNT 309 x10e3/uL (140-360); RED BLOOD COUNT 4.16 x10e6/uL (4.3-5.7); RED CELL DISTRIBUTION WIDTH 19.6 % (11.7-14.4); WHITE BLOOD COUNT 8.81 x10e3/uL (4.8-10.8)
[2024-05-23 07:36] LABS: CHOL/HDL RATIO 3.7 (3.9-4.7)
[2024-05-23 07:45] LABS: ALBUMIN 2.3 g/dL (3.5-5.0); ALBUMIN/GLOBULIN RATIO 0.6 (0.8-2.0); ANION GAP 16.6 mmol/L (8-16); BILIRUBIN,TOTAL 0.8 mg/dL (0.2-1.2); CALCIUM 9.1 mg/dL (8.4-10.2); CREATININE, SERUM 1.82 mg/dL (0.72-1.25); POTASSIUM 4.6 mmol/L (3.5-5.1); TOTAL PROTEIN 6.2 g/dL (6.5-8.1)
[2024-05-23 07:56] LABS: THYROID STIMULATING HORMONE 2.439 uIU/mL (0.350-4.940)
[2024-05-23] MEDS: WARFARIN SOD 1 MG TAB PO SCH (17:01)
[2024-05-24] VITALS (14 sets, daily range): BP systolic 106–151; BP diastolic 41–60; PULSE 56–85; RESP 18–31; TEMP 97.7–98.6; O2SAT 93–100
[2024-05-24] MEDS: ACETAMINOPHEN 325 MG TAB PO PRN (00:13)
[2024-05-24] MEDS: MELATONIN 5 MG TABLET PO PRN (00:13)
[2024-05-24 06:41] LABS: BASOPHILS # (AUTO) 0.1 (0.0-0.1); BASOPHILS % 0.8 % (0.0-1.0); EOSINOPHILS # (AUTO) 0.3 (0.0-0.4); EOSINOPHILS % 3.7 % (0.0-6.0); HEMATOCRIT 34.8 % (38.2-49.6); HEMOGLOBIN 10.2 g/dL (14.0-18.0); LYMPHOCYTES # (AUTO) 1.2 (1.0-3.2); LYMPHOCYTES % 13.9 % (18.0-39.1); MEAN CORPUSCULAR HEMOGLOBIN 24.6 pg (28-32); MEAN CORPUSCULAR HGB CONC 29.3 g/dL (31-35); MEAN CORPUSCULAR VOLUME 83.9 fL (81-99); NEUTROPHILS # (AUTO) 5.8 (2.1-6.9); NEUTROPHILS % 69.2 % (38.7-80.0); PLATELET COUNT 229 x10e3/uL (140-360); RED BLOOD COUNT 4.15 x10e6/uL (4.3-5.7); RED CELL DISTRIBUTION WIDTH 19.8 % (11.7-14.4); WHITE BLOOD COUNT 8.34 x10e3/uL (4.8-10.8)
[2024-05-24 06:48] LABS: INR 2.95; PROTHROMBIN TIME 32.1 seconds (11.9-14.5)
[2024-05-24 07:00] LABS: ALBUMIN 2.3 g/dL (3.5-5.0); ALBUMIN/GLOBULIN RATIO 0.6 (0.8-2.0); ANION GAP 14.3 mmol/L (8-16); BILIRUBIN,TOTAL 0.9 mg/dL (0.2-1.2); CALCIUM 8.9 mg/dL (8.4-10.2); CREATININE, SERUM 2.01 mg/dL (0.72-1.25); POTASSIUM 4.3 mmol/L (3.5-5.1)
[2024-05-24] MEDS: Doxycycline IV 100 MG in SODIUM CHLORIDE 0.9% 100 ML IV SCH (09:51)
[2024-05-24 13:14] LABS: BILIRUBIN,URINE NEGATIVE (NEGATIVE); CLARITY,URINE SL CLOUDY (CLEAR); COLOR,URINE YELLOW (YELLOW); GLUCOSE, URINE NEGATIVE (NEGATIVE); KETONES,URINE NEGATIVE (NEGATIVE); LEUKOCYTE ESTERASE ,URINE SMALL (NEGATIVE); NITRITE,URINE NEGATIVE (NEGATIVE); PH,URINE 5.5 (5 - 7); PROTEIN,URINE DIPSTICK 2+ (NEGATIVE); URINE UROBILINOGEN 1 mg/dL (0.2 - 1)
[2024-05-24 13:23] LABS: RBC,URINE >50 /HPF (0-5)
[2024-05-24 13:24] LABS: BACTERIA,URINE FEW /HPF; EPITHELIAL CELLS,URINE FEW /LPF
[2024-05-24] MEDS: ALBUTEROL/IPRATROPIUM 3 ML NEB NEB SCH (14:26)
[2024-05-24] MEDS: LACTATED RINGER'S 500 ML IV ONE (18:30)
[2024-05-25] VITALS (14 sets, daily range): BP systolic 105–153; BP diastolic 32–59; PULSE 57–76; RESP 16–20; TEMP 97.4–98.6; O2SAT 95–100
[2024-05-25 05:52] LABS: BASOPHILS # (AUTO) 0.1 (0.0-0.1); BASOPHILS % 0.6 % (0.0-1.0); EOSINOPHILS # (AUTO) 0.3 (0.0-0.4); EOSINOPHILS % 4.1 % (0.0-6.0); HEMATOCRIT 32.6 % (38.2-49.6); LYMPHOCYTES # (AUTO) 1.1 (1.0-3.2); LYMPHOCYTES % 13.2 % (18.0-39.1); MEAN CORPUSCULAR HEMOGLOBIN 24.6 pg (28-32); MEAN CORPUSCULAR HGB CONC 30.7 g/dL (31-35); MEAN CORPUSCULAR VOLUME 80.3 fL (81-99); MONOCYTES % 12.2 % (4.4-11.3); NEUTROPHILS # (AUTO) 5.8 (2.1-6.9); NEUTROPHILS % 69.4 % (38.7-80.0); PLATELET COUNT 314 x10e3/uL (140-360); RED BLOOD COUNT 4.06 x10e6/uL (4.3-5.7); RED CELL DISTRIBUTION WIDTH 19.3 % (11.7-14.4); WHITE BLOOD COUNT 8.28 x10e3/uL (4.8-10.8)
[2024-05-25 06:12] LABS: INR 2.6; PROTHROMBIN TIME 29.1 seconds (11.9-14.5)
[2024-05-25 06:26] LABS: ALBUMIN 2.4 g/dL (3.5-5.0); ALBUMIN/GLOBULIN RATIO 0.7 (0.8-2.0); ANION GAP 13.1 mmol/L (8-16); BILIRUBIN,TOTAL 0.8 mg/dL (0.2-1.2); CREATININE, SERUM 1.87 mg/dL (0.72-1.25); POTASSIUM 4.1 mmol/L (3.5-5.1)
[2024-05-25] MEDS ORDERED: ONDANSETRON HCL 4 MG ORAL DISINTEGRATING TAB PO PRN (12:00)
[2024-05-25] MEDS ORDERED: FUROSEMIDE INJ 10 MG/ML 4 ML VIAL ONE (14:44)
[2024-05-26] VITALS (12 sets, daily range): BP systolic 124–164; BP diastolic 31–49; PULSE 64–78; RESP 16–20; TEMP 97.6–98.4; O2SAT 95–100
[2024-05-26 06:29] LABS: BASOPHILS # (AUTO) 0.1 (0.0-0.1); BASOPHILS % 0.6 % (0.0-1.0); EOSINOPHILS # (AUTO) 0.4 (0.0-0.4); EOSINOPHILS % 3.6 % (0.0-6.0); LYMPHOCYTES # (AUTO) 1.6 (1.0-3.2); LYMPHOCYTES % 16.3 % (18.0-39.1); MEAN CORPUSCULAR HEMOGLOBIN 24.6 pg (28-32); MEAN CORPUSCULAR HGB CONC 31.3 g/dL (31-35); MEAN CORPUSCULAR VOLUME 78.8 fL (81-99); MONOCYTES # (AUTO) 1.5 (0.2-0.8); MONOCYTES % 14.6 % (4.4-11.3); NEUTROPHILS # (AUTO) 6.4 (2.1-6.9); NEUTROPHILS % 64.6 % (38.7-80.0); PLATELET COUNT 304 x10e3/uL (140-360); RED BLOOD COUNT 4.06 x10e6/uL (4.3-5.7); RED CELL DISTRIBUTION WIDTH 19.4 % (11.7-14.4); WHITE BLOOD COUNT 9.91 x10e3/uL (4.8-10.8)
[2024-05-26 06:42] LABS: ALBUMIN 2.5 g/dL (3.5-5.0); ALBUMIN/GLOBULIN RATIO 0.7 (0.8-2.0); CREATININE, SERUM 1.85 mg/dL (0.72-1.25); MAGNESIUM 1.9 MG/DL (1.3-2.1)
[2024-05-27] VITALS (13 sets, daily range): BP systolic 119–162; BP diastolic 43–66; PULSE 64–78; RESP 18–22; TEMP 97.7–98.6; O2SAT 93–100
[2024-05-27 07:08] LABS: INR 1.7; PROTHROMBIN TIME 20.9 seconds (11.9-14.5)
[2024-05-27 07:20] LABS: ALBUMIN 2.3 g/dL (3.5-5.0); ALBUMIN/GLOBULIN RATIO 0.7 (0.8-2.0); BILIRUBIN,TOTAL 0.9 mg/dL (0.2-1.2); CALCIUM 8.8 mg/dL (8.4-10.2); CREATININE, SERUM 1.85 mg/dL (0.72-1.25); TOTAL PROTEIN 5.6 g/dL (6.5-8.1)
[2024-05-28] VITALS (11 sets, daily range): BP systolic 125–162; BP diastolic 40–56; PULSE 60–88; RESP 16–20; TEMP 97.3–98.6; O2SAT 95–100
[2024-05-28] MEDS: SODIUM CHLORIDE 0.9% 250ML 250 ML ONE (00:50)
[2024-05-28 05:54] LABS: BASOPHILS # (AUTO) 0.1 (0.0-0.1); BASOPHILS % 0.6 % (0.0-1.0); EOSINOPHILS # (AUTO) 0.3 (0.0-0.4); EOSINOPHILS % 3.9 % (0.0-6.0); HEMATOCRIT 31.7 % (38.2-49.6); HEMOGLOBIN 9.4 g/dL (14.0-18.0); LYMPHOCYTES # (AUTO) 1.1 (1.0-3.2); LYMPHOCYTES % 13.6 % (18.0-39.1); MEAN CORPUSCULAR HEMOGLOBIN 24.1 pg (28-32); MEAN CORPUSCULAR HGB CONC 29.7 g/dL (31-35); MEAN CORPUSCULAR VOLUME 81.3 fL (81-99); MONOCYTES # (AUTO) 1.1 (0.2-0.8); MONOCYTES % 13.2 % (4.4-11.3); NEUTROPHILS # (AUTO) 5.7 (2.1-6.9); NEUTROPHILS % 68.2 % (38.7-80.0); PLATELET COUNT 301 x10e3/uL (140-360); RED CELL DISTRIBUTION WIDTH 19.6 % (11.7-14.4); WHITE BLOOD COUNT 8.28 x10e3/uL (4.8-10.8)
[2024-05-28 06:12] LABS: INR 1.5; PROTHROMBIN TIME 18.9 seconds (11.9-14.5)
[2024-05-28 06:22] LABS: ALBUMIN 2.4 g/dL (3.5-5.0); ALBUMIN/GLOBULIN RATIO 0.8 (0.8-2.0); ANION GAP 13.4 mmol/L (8-16); BILIRUBIN,TOTAL 0.9 mg/dL (0.2-1.2); CALCIUM 8.8 mg/dL (8.4-10.2); CREATININE, SERUM 1.88 mg/dL (0.72-1.25); MAGNESIUM 1.8 MG/DL (1.3-2.1); POTASSIUM 4.4 mmol/L (3.5-5.1); TOTAL PROTEIN 5.5 g/dL (6.5-8.1)
[2024-05-28] MEDS ORDERED: ENOXAPARIN INJ 80 MG/0.8 ML SYR SC SCH (10:00)
[2024-05-28] MEDS: ENOXAPARIN INJ 80 MG/0.8 ML SYR SC SCH (11:06)
[2024-05-28] MEDS: DONEPEZIL HCL 5 MG TAB PO SCH (22:17)
[2024-05-29] VITALS (9 sets, daily range): BP systolic 112–196; BP diastolic 39–68; PULSE 65–73; RESP 16–20; TEMP 97.4–97.9; O2SAT 90–100
[2024-05-29 05:38] LABS: ABG HCO3 28 mmol/L (22-26); ABG PCO2 39 mmHg (35-45); ABG PH 7.46 (7.35-7.45); ABG PO2 69 mmHg (80-105); ABG TCO2 29
[2024-05-29 06:28] LABS: ANION GAP 13.4 mmol/L (8-16); CALCIUM 8.8 mg/dL (8.4-10.2); CREATININE, SERUM 1.91 mg/dL (0.72-1.25); POTASSIUM 4.4 mmol/L (3.5-5.1)
[2024-05-29] MEDS ORDERED: SEVOFLURANE INHAL SOLN 250 ML PEN BTL ONE (06:57)
[2024-05-29] MEDS ORDERED: PROPOFOL IV EMULSION 10 MG/ML 20 ML VIAL ONE (06:57)
[2024-05-29] MEDS ORDERED: LIDOCAINE HCL 2% LOCAL INJ 5 ML SDV VIAL INJ ONE (06:57)
[2024-05-29] MEDS ORDERED: ACETAMINOPHEN 1000 MG/100 ML 100 ML IV ONE (06:57)
[2024-05-29] MEDS ORDERED: FENTANYL CITRATE/PF 100MCG/2 ML INJ ONE (06:57)
[2024-05-29] MEDS ORDERED: SODIUM CHLORIDE 0.9% 100 ML ONE (07:29)
[2024-05-29] MEDS ORDERED: PHENYLEPHRINE HCL 1% 10 MG/ML VIAL ONE (07:29)
[2024-05-29] MEDS ORDERED: DEXAMETHASONE SOD PHOS INJ 4 MG/ML SDV ONE (07:37)
[2024-05-29] MEDS ORDERED: ONDANSETRON HCL INJ 2MG/ML 2ML 2 MG/ML VIAL ONE (07:37)
[2024-05-29] MEDS ORDERED: EPHEDRINE SULFATE INJ 50 MG/ML VIAL ONE (07:45)
[2024-05-29] MEDS: TRAMADOL HCL 50 MG TAB PO PRN (10:33)
[2024-05-29] MEDS: SENNA-S TABLET PO SCH (10:33)
[2024-05-29] MEDS ORDERED: Morphine 2mg Syringe 2 MG/ML SYR IV PRN (12:30)
[2024-05-29] MEDS: WARFARIN SOD 1 MG TAB PO ONE (13:04)
[2024-05-29] MEDS: ONDANSETRON HCL INJ 2MG/ML 2ML 2 MG/ML VIAL IV PRN (13:19)
[2024-05-29] MEDS: Morphine 2mg Syringe 2 MG/ML SYR IV ONE (13:20)
[2024-05-29] MEDS: LACTATED RINGER'S 1,000 ML INJ SCH (15:00)
[2024-05-29] MEDS: WARFARIN SOD 1 MG TAB PO SCH (16:27)
[2024-05-30] VITALS (12 sets, daily range): BP systolic 110–148; BP diastolic 37–45; PULSE 62–85; RESP 15–21; TEMP 97.3–98; O2SAT 95–100
[2024-05-30 06:34] LABS: BASOPHILS % 0.2 % (0.0-1.0); EOSINOPHILS % 0.1 % (0.0-6.0); HEMATOCRIT 33.8 % (38.2-49.6); HEMOGLOBIN 10.3 g/dL (14.0-18.0); LYMPHOCYTES # (AUTO) 0.8 (1.0-3.2); LYMPHOCYTES % 4.7 % (18.0-39.1); MEAN CORPUSCULAR HEMOGLOBIN 24.5 pg (28-32); MEAN CORPUSCULAR HGB CONC 30.5 g/dL (31-35); MEAN CORPUSCULAR VOLUME 80.3 fL (81-99); MONOCYTES % 12.1 % (4.4-11.3); NEUTROPHILS # (AUTO) 13.7 (2.1-6.9); NEUTROPHILS % 82.5 % (38.7-80.0); PLATELET COUNT 408 x10e3/uL (140-360); RED BLOOD COUNT 4.21 x10e6/uL (4.3-5.7); RED CELL DISTRIBUTION WIDTH 19.8 % (11.7-14.4); WHITE BLOOD COUNT 16.55 x10e3/uL (4.8-10.8)
[2024-05-30 07:05] LABS: INR 1.29; PROTHROMBIN TIME 16.8 seconds (11.9-14.5)
[2024-05-30 07:13] LABS: ANION GAP 20.1 mmol/L (8-16); CALCIUM 9.2 mg/dL (8.4-10.2); CREATININE, SERUM 2.71 mg/dL (0.72-1.25); POTASSIUM 5.1 mmol/L (3.5-5.1); URIC ACID 10.2 mg/dL (4.8-8.0)
[2024-05-30] MEDS: HYDROMORPHONE 1MG/1ML INJ IV ONE (08:39)
[2024-05-30] MEDS: ENOXAPARIN INJ 80 MG/0.8 ML SYR SC SCH (08:39)
[2024-05-30] MEDS: FUROSEMIDE INJ 10 MG/ML 4 ML VIAL IV ONE (14:03)
[2024-05-30] MEDS ORDERED: CEFTRIAXONE 1 GM VIAL IM ONE (18:20)
[2024-05-31] VITALS (9 sets, daily range): BP systolic 113–137; BP diastolic 42–49; PULSE 73–86; RESP 16–21; TEMP 97.6–98.6; O2SAT 94–100
[2024-05-31 06:41] LABS: BASOPHILS % 0.1 % (0.0-1.0); EOSINOPHILS % 0.1 % (0.0-6.0); HEMATOCRIT 31.8 % (38.2-49.6); HEMOGLOBIN 9.6 g/dL (14.0-18.0); LYMPHOCYTES % 6.1 % (18.0-39.1); MEAN CORPUSCULAR HEMOGLOBIN 24.6 pg (28-32); MEAN CORPUSCULAR HGB CONC 30.2 g/dL (31-35); MEAN CORPUSCULAR VOLUME 81.3 fL (81-99); MONOCYTES # (AUTO) 1.9 (0.2-0.8); MONOCYTES % 11.8 % (4.4-11.3); NEUTROPHILS # (AUTO) 13.1 (2.1-6.9); NEUTROPHILS % 81.3 % (38.7-80.0); PLATELET COUNT 333 x10e3/uL (140-360); RED BLOOD COUNT 3.91 x10e6/uL (4.3-5.7); RED CELL DISTRIBUTION WIDTH 19.9 % (11.7-14.4); WHITE BLOOD COUNT 16.08 x10e3/uL (4.8-10.8)
[2024-05-31 06:57] LABS: INR 1.7; PROTHROMBIN TIME 20.9 seconds (11.9-14.5)
[2024-05-31 07:06] LABS: ANION GAP 17.3 mmol/L (8-16); CALCIUM 8.8 mg/dL (8.4-10.2); CREATININE, SERUM 3.76 mg/dL (0.72-1.25)
[2024-05-31 07:11] LABS: POTASSIUM 5.3 mmol/L (3.5-5.1)
[2024-05-31] MEDS: SODIUM CHLORIDE 0.9% 1000ML 1,000 ML IV SCH (08:49)
[2024-05-31] MEDS: SOD POLYSTYRENE SULFONATE SUSP 15 GM/60 ML BTL PO ONE (08:51)
[2024-05-31] MEDS: FUROSEMIDE INJ 10 MG/ML 4 ML VIAL IV ONE (08:51)
[2024-05-31] MEDS ORDERED: AMLODIPINE BESYLATE 5 MG TAB PO SCH (09:00)
[2024-05-31] MEDS ORDERED: HYDROMORPHONE 1MG/1ML INJ IV PRN (09:45)
[2024-05-31] MEDS ORDERED: TRAMADOL HCL 50 MG TAB PO PRN (09:45)
[2024-05-31] MEDS: POLYETHYLENE GLYCOL 3350 17 GM PACK PO SCH (11:12)
[2024-05-31] MEDS ORDERED: BISACODYL 10 MG SUPP PR ONE (14:00)
[2024-05-31] MEDS: BISACODYL 10 MG SUPP PR ONE (14:37)
[2024-06-01] VITALS (10 sets, daily range): BP systolic 105–135; BP diastolic 41–86; PULSE 68–86; RESP 16–20; TEMP 97.6–98.8; O2SAT 93–100
[2024-06-01 02:08] LABS: CALCIUM 9.4 mg/dL (8.6-10.2)
[2024-06-01] MEDS: SODIUM CHLORIDE 0.9% 1000ML 1,000 ML IV SCH (06:34)
[2024-06-01] MEDS ORDERED: BISACODYL 10 MG SUPP PR ONE (06:45)
[2024-06-01] MEDS ORDERED: LACTULOSE SYRUP 20 GM/30 ML UDC PO ONE (06:45)
[2024-06-01 07:03] LABS: BASOPHILS % 0.1 % (0.0-1.0); EOSINOPHILS % 0.2 % (0.0-6.0); HEMATOCRIT 30.3 % (38.2-49.6); HEMOGLOBIN 9.1 g/dL (14.0-18.0); LYMPHOCYTES % 6.1 % (18.0-39.1); MEAN CORPUSCULAR HEMOGLOBIN 24.5 pg (28-32); MEAN CORPUSCULAR VOLUME 81.7 fL (81-99); MONOCYTES # (AUTO) 2.2 (0.2-0.8); MONOCYTES % 13.4 % (4.4-11.3); NEUTROPHILS % 79.6 % (38.7-80.0); PLATELET COUNT 307 x10e3/uL (140-360); RED BLOOD COUNT 3.71 x10e6/uL (4.3-5.7); RED CELL DISTRIBUTION WIDTH 19.8 % (11.7-14.4); WHITE BLOOD COUNT 16.31 x10e3/uL (4.8-10.8)
[2024-06-01 07:24] LABS: INR 2.38; PROTHROMBIN TIME 27.2 seconds (11.9-14.5)
[2024-06-01 07:36] LABS: ALBUMIN 2.3 g/dL (3.5-5.0); ALBUMIN/GLOBULIN RATIO 0.7 (0.8-2.0); ANION GAP 19.5 mmol/L (8-16); BILIRUBIN,TOTAL 0.8 mg/dL (0.2-1.2); CALCIUM 8.5 mg/dL (8.4-10.2); CREATININE, SERUM 4.57 mg/dL (0.72-1.25); TOTAL PROTEIN 5.5 g/dL (6.5-8.1)
[2024-06-01 07:38] LABS: POTASSIUM 5.5 mmol/L (3.5-5.1)
[2024-06-01] MEDS: LACTULOSE SYRUP 20 GM/30 ML UDC PO ONE (09:37)
[2024-06-01] MEDS: BISACODYL 10 MG SUPP PR ONE (09:37)
[2024-06-01] MEDS: DEXILANT 60 MG PO SCH (09:39)
[2024-06-01] MEDS: FUROSEMIDE INJ 10 MG/ML 4 ML VIAL IV ONE (16:10)
[2024-06-01] MEDS: SOD POLYSTYRENE SULFONATE SUSP 15 GM/60 ML BTL PO ONE (16:10)
[2024-06-01] MEDS: SODIUM BICARBONATE 8.4% INJ 50 ML SYR IV STA (18:04)
[2024-06-01 20:47] LABS: ANION GAP 18.2 mmol/L (8-16); CALCIUM 8.2 mg/dL (8.4-10.2); CREATININE, SERUM 4.95 mg/dL (0.72-1.25)
[2024-06-01 20:53] LABS: POTASSIUM 5.2 mmol/L (3.5-5.1)
[2024-06-01] MEDS: FUROSEMIDE INJ 10 MG/ML 4 ML VIAL IV SCH (21:23)
[2024-06-02] VITALS (13 sets, daily range): BP systolic 97–141; BP diastolic 39–55; PULSE 69–87; RESP 16–20; TEMP 97.6–98.6; O2SAT 90–100
[2024-06-02 06:45] LABS: BASOPHILS % 0.1 % (0.0-1.0); EOSINOPHILS % 0.2 % (0.0-6.0); HEMOGLOBIN 8.9 g/dL (14.0-18.0); LYMPHOCYTES # (AUTO) 0.8 (1.0-3.2); LYMPHOCYTES % 6.3 % (18.0-39.1); MEAN CORPUSCULAR HEMOGLOBIN 24.4 pg (28-32); MEAN CORPUSCULAR HGB CONC 29.7 g/dL (31-35); MEAN CORPUSCULAR VOLUME 82.2 fL (81-99); MONOCYTES # (AUTO) 1.5 (0.2-0.8); MONOCYTES % 11.6 % (4.4-11.3); NEUTROPHILS # (AUTO) 10.6 (2.1-6.9); NEUTROPHILS % 81.1 % (38.7-80.0); PLATELET COUNT 243 x10e3/uL (140-360); RED BLOOD COUNT 3.65 x10e6/uL (4.3-5.7)
[2024-06-02 07:20] LABS: ALBUMIN 2.1 g/dL (3.5-5.0); ALBUMIN/GLOBULIN RATIO 0.6 (0.8-2.0); ANION GAP 18.6 mmol/L (8-16); BILIRUBIN,TOTAL 0.8 mg/dL (0.2-1.2); CALCIUM 8.2 mg/dL (8.4-10.2); CREATININE, SERUM 4.79 mg/dL (0.72-1.25); POTASSIUM 4.6 mmol/L (3.5-5.1); TOTAL PROTEIN 5.5 g/dL (6.5-8.1)
[2024-06-02] MEDS ORDERED: SODIUM CHLORIDE 0.9% 250ML 250 ML ONE (11:02)
[2024-06-02] MEDS ORDERED: LIDOCAINE HCL 1% 30ML-PF VIAL ONE (11:02)
[2024-06-02 13:44] LABS: INR 3.1; PROTHROMBIN TIME 33.4 seconds (11.9-14.5)
[2024-06-02] MEDS ORDERED: HEPARIN SOD (PORCINE) 1000 UNIT/ML SDV ONE (14:18)
[2024-06-02] MEDS: LEVALBUTEROL HCL SOLN NEBU 0.63 MG/3 ML NEB INH PRN (15:24)
[2024-06-02 15:25] LABS: ABG PH 7.33 (7.35-7.45)
[2024-06-02 15:26] LABS: ABG HCO3 21 mmol/L (22-26); ABG PCO2 40 mmHg (35-45); ABG PO2 234 mmHg (80-105); ABG TCO2 22
[2024-06-02] MEDS: FUROSEMIDE INJ 10 MG/ML 4 ML VIAL IV SCH (15:36)
[2024-06-02] MEDS: METOLAZONE 5 MG TAB PO ONE (15:36)
[2024-06-02] MEDS: SODIUM BICARBONATE 650 MG TAB PO SCH (17:14)
[2024-06-02] MEDS: DEXTROSE 50% SYRINGE 50 ML IV PRN (20:41)
[2024-06-03] VITALS (10 sets, daily range): BP systolic 110–140; BP diastolic 39–58; PULSE 58–84; RESP 16–20; TEMP 97.2–98.2; O2SAT 95–100
[2024-06-03 06:39] LABS: BASOPHILS % 0.2 % (0.0-1.0); EOSINOPHILS # (AUTO) 0.2 (0.0-0.4); EOSINOPHILS % 1.4 % (0.0-6.0); HEMATOCRIT 29.3 % (38.2-49.6); HEMOGLOBIN 8.9 g/dL (14.0-18.0); LYMPHOCYTES # (AUTO) 0.8 (1.0-3.2); LYMPHOCYTES % 7.6 % (18.0-39.1); MEAN CORPUSCULAR HEMOGLOBIN 24.5 pg (28-32); MEAN CORPUSCULAR HGB CONC 30.4 g/dL (31-35); MEAN CORPUSCULAR VOLUME 80.7 fL (81-99); MONOCYTES # (AUTO) 1.5 (0.2-0.8); MONOCYTES % 14.4 % (4.4-11.3); NEUTROPHILS # (AUTO) 7.9 (2.1-6.9); NEUTROPHILS % 75.8 % (38.7-80.0); PLATELET COUNT 283 x10e3/uL (140-360); RED BLOOD COUNT 3.63 x10e6/uL (4.3-5.7); RED CELL DISTRIBUTION WIDTH 20.3 % (11.7-14.4)
[2024-06-03 06:54] LABS: INR 3.46; PROTHROMBIN TIME 36.4 seconds (11.9-14.5)
[2024-06-03 07:09] LABS: ALBUMIN 2.1 g/dL (3.5-5.0); ALBUMIN/GLOBULIN RATIO 0.6 (0.8-2.0); ANION GAP 19.8 mmol/L (8-16); BILIRUBIN,TOTAL 0.7 mg/dL (0.2-1.2); CALCIUM 8.4 mg/dL (8.4-10.2); CREATININE, SERUM 4.51 mg/dL (0.72-1.25); POTASSIUM 3.8 mmol/L (3.5-5.1); TOTAL PROTEIN 5.5 g/dL (6.5-8.1)
[2024-06-03] MEDS: METOLAZONE 5 MG TAB PO ONE (17:00)
[2024-06-03] MEDS: FUROSEMIDE INJ 10 MG/ML 4 ML VIAL IV SCH (20:58)
[2024-06-03] MEDS ORDERED: FUROSEMIDE INJ 10 MG/ML 4 ML VIAL IV SCH (22:00)
[2024-06-04] VITALS (10 sets, daily range): BP systolic 118–153; BP diastolic 38–99; PULSE 70–82; RESP 16–20; TEMP 97.3–98.4; O2SAT 94–100
[2024-06-04 05:49] LABS: ABG HCO3 21 mmol/L (22-26); ABG PCO2 40 mmHg (35-45); ABG PH 7.33 (7.35-7.45); ABG PO2 234 mmHg (80-105); ABG TCO2 22
[2024-06-04 06:09] LABS: BASOPHILS % 0.3 % (0.0-1.0); EOSINOPHILS # (AUTO) 0.2 (0.0-0.4); EOSINOPHILS % 2.5 % (0.0-6.0); HEMATOCRIT 27.5 % (38.2-49.6); HEMOGLOBIN 8.5 g/dL (14.0-18.0); LYMPHOCYTES % 10.5 % (18.0-39.1); MEAN CORPUSCULAR HEMOGLOBIN 24.6 pg (28-32); MEAN CORPUSCULAR HGB CONC 30.9 g/dL (31-35); MEAN CORPUSCULAR VOLUME 79.5 fL (81-99); MONOCYTES # (AUTO) 1.6 (0.2-0.8); MONOCYTES % 16.8 % (4.4-11.3); NEUTROPHILS # (AUTO) 6.6 (2.1-6.9); NEUTROPHILS % 69.6 % (38.7-80.0); PLATELET COUNT 241 x10e3/uL (140-360); RED BLOOD COUNT 3.46 x10e6/uL (4.3-5.7); RED CELL DISTRIBUTION WIDTH 20.2 % (11.7-14.4); WHITE BLOOD COUNT 9.52 x10e3/uL (4.8-10.8)
[2024-06-04 06:32] LABS: ANION GAP 17.8 mmol/L (8-16); CALCIUM 8.1 mg/dL (8.4-10.2); CREATININE, SERUM 3.73 mg/dL (0.72-1.25); POTASSIUM 3.8 mmol/L (3.5-5.1)
[2024-06-04 09:30] LABS: INR 2.88; PROTHROMBIN TIME 31.5 seconds (11.9-14.5)
[2024-06-04] MEDS ORDERED: CALCIUM CARBONATE 500 MG CHEWABLE TABS PO PRN (13:30)
[2024-06-04] MEDS: FUROSEMIDE INJ 10 MG/ML 4 ML VIAL IV SCH (17:01)
[2024-06-04] MEDS: MIRTAZAPINE 15 MG TAB PO SCH (21:10)
[2024-06-05] VITALS (7 sets, daily range): BP systolic 99–153; BP diastolic 41–64; PULSE 74–82; RESP 16–20; TEMP 97.7–98.7; O2SAT 93–99
[2024-06-05 05:21] LABS: BASOPHILS % 0.3 % (0.0-1.0); EOSINOPHILS # (AUTO) 0.3 (0.0-0.4); EOSINOPHILS % 3.4 % (0.0-6.0); HEMATOCRIT 30.1 % (38.2-49.6); HEMOGLOBIN 9.3 g/dL (14.0-18.0); LYMPHOCYTES # (AUTO) 1.3 (1.0-3.2); LYMPHOCYTES % 13.2 % (18.0-39.1); MEAN CORPUSCULAR HEMOGLOBIN 24.6 pg (28-32); MEAN CORPUSCULAR HGB CONC 30.9 g/dL (31-35); MEAN CORPUSCULAR VOLUME 79.6 fL (81-99); MONOCYTES # (AUTO) 1.5 (0.2-0.8); MONOCYTES % 15.6 % (4.4-11.3); NEUTROPHILS # (AUTO) 6.4 (2.1-6.9); PLATELET COUNT 251 x10e3/uL (140-360); RED BLOOD COUNT 3.78 x10e6/uL (4.3-5.7); RED CELL DISTRIBUTION WIDTH 20.3 % (11.7-14.4); WHITE BLOOD COUNT 9.55 x10e3/uL (4.8-10.8)
[2024-06-05 05:42] LABS: INR 2.26; PROTHROMBIN TIME 26.1 seconds (11.9-14.5)
[2024-06-05 05:56] LABS: ALBUMIN 2.1 g/dL (3.5-5.0); ALBUMIN/GLOBULIN RATIO 0.6 (0.8-2.0); ANION GAP 17.2 mmol/L (8-16); BILIRUBIN,TOTAL 0.9 mg/dL (0.2-1.2); CALCIUM 8.3 mg/dL (8.4-10.2); CREATININE, SERUM 3.12 mg/dL (0.72-1.25); TOTAL PROTEIN 5.6 g/dL (6.5-8.1)
[2024-06-05 05:57] LABS: POTASSIUM 3.2 mmol/L (3.5-5.1)
[2024-06-05] MEDS: POTASSIUM CHLORIDE 10MEQ EA PO ONE (08:41)
[2024-06-05] MEDS ORDERED: MIRTAZAPINE15 MG PO (12:13)
[2024-06-05] MEDS ORDERED: LASIX20 MG PO (12:14)
[2024-06-05] MEDS: POTASSIUM CHLORIDE 20 MEQ TAB CR PO ONE (15:49)
[2024-06-05] MEDS: WARFARIN SOD 1 MG TAB PO SCH (16:43)
[2024-06-06] MEDS ORDERED: FUROSEMIDE 20 MG TAB PO SCH (09:00)
[2024-06-06] MEDS ORDERED: SODIUM BICARBONATE 650 MG TAB PO SCH (09:00)
[2024-06-06] MEDS ORDERED: POTASSIUM CHLORIDE 20 MEQ TAB CR PO SCH (09:00)
== END 2024-06-05 19:00 | disposition home or self-care (01) | DRG 264 ==
LOC: ER 21:29 → ERHOLD 23:37 → ICU 05-22 01:19 → MED/SURG3 05-24 13:50
PROVIDERS: ADMIT Family Medicine Adult Medicine; ATTEND Family Medicine Adult Medicine
PROC: 4A033R1 Measurement of Arterial Saturation, Peripheral, Percutaneous Approach (ICD-10-PCS; 2024-05-22)
PROC: 4A033R1 Measurement of Arterial Saturation, Peripheral, Percutaneous Approach (ICD-10-PCS; 2024-05-22)
PROC: 0T788DZ Dilation of Bilateral Ureters with Intraluminal Device, Via Natural or Artificial Opening Endoscopic (ICD-10-PCS; 2024-05-29)
PROC: 0TF6XZZ Fragmentation in Right Ureter, External Approach (ICD-10-PCS; 2024-05-29)
PROC: BT141ZZ Fluoroscopy of Kidneys, Ureters and Bladder using Low Osmolar Contrast (ICD-10-PCS; 2024-05-29)
PROC: 02HV33Z Insertion of Infusion Device into Superior Vena Cava, Percutaneous Approach (ICD-10-PCS; principal; 2024-06-02)
PROC: B5181ZA Fluoroscopy of Superior Vena Cava using Low Osmolar Contrast, Guidance (ICD-10-PCS; 2024-06-02)
PROC: 4A033R1 Measurement of Arterial Saturation, Peripheral, Percutaneous Approach (ICD-10-PCS; 2024-06-02)
PROC: 4A033R1 Measurement of Arterial Saturation, Peripheral, Percutaneous Approach (ICD-10-PCS; 2024-06-02)
PROC: 3E0436Z Introduction of Nutritional Substance into Central Vein, Percutaneous Approach (ICD-10-PCS; 2024-06-04)
DX: I13.0 Hypertensive heart and chronic kidney disease with heart failure and stage 1 through stage 4 chronic kidney disease, or unspecified chronic kidney disease (principal); G93.41 Metabolic encephalopathy; I50.33 Acute on chronic diastolic (congestive) heart failure; J96.21 Acute and chronic respiratory failure with hypoxia; N17.9 Acute kidney failure, unspecified; N13.2 Hydronephrosis with renal and ureteral calculous obstruction; I82.612 Acute embolism and thrombosis of superficial veins of left upper extremity; D68.9 Coagulation defect, unspecified; N13.8 Other obstructive and reflux uropathy; E11.22 Type 2 diabetes mellitus with diabetic chronic kidney disease; N18.32 Chronic kidney disease, stage 3b; I48.0 Paroxysmal atrial fibrillation; Z79.01 Long term (current) use of anticoagulants; E03.9 Hypothyroidism, unspecified; E78.5 Hyperlipidemia, unspecified; D63.8 Anemia in other chronic diseases classified elsewhere; I27.20 Pulmonary hypertension, unspecified; I45.10 Unspecified right bundle-branch block; Z99.81 Dependence on supplemental oxygen; R00.1 Bradycardia, unspecified; R80.9 Proteinuria, unspecified; E11.51 Type 2 diabetes mellitus with diabetic peripheral angiopathy without gangrene; Z79.4 Long term (current) use of insulin; I08.3 Combined rheumatic disorders of mitral, aortic and tricuspid valves; R74.8 Abnormal levels of other serum enzymes; J43.9 Emphysema, unspecified; Z87.891 Personal history of nicotine dependence; R11.0 Nausea; T40.2X5A Adverse effect of other opioids, initial encounter; Y92.230 Patient room in hospital as the place of occurrence of the external cause; R31.0 Gross hematuria; E87.5 Hyperkalemia; I95.81 Postprocedural hypotension; I89.0 Lymphedema, not elsewhere classified; K57.30 Diverticulosis of large intestine without perforation or abscess without bleeding; G20.A1 Parkinson's disease without dyskinesia, without mention of fluctuations; G30.9 Alzheimer's disease, unspecified; F02.80 Dementia in other diseases classified elsewhere, unspecified severity, without behavioral disturbance, psychotic disturbance, mood disturbance, and anxiety; K80.20 Calculus of gallbladder without cholecystitis without obstruction; N40.1 Benign prostatic hyperplasia with lower urinary tract symptoms; Z95.3 Presence of xenogenic heart valve; Z71.3 Dietary counseling and surveillance; Z68.23 Body mass index [BMI] 23.0-23.9, adult; R53.81 Other malaise; N32.89 Other specified disorders of bladder; Z79.899 Other long term (current) drug therapy
CPT/HCPCS: 36415; 36556; 36600; 50590; 51700; 71045; 71250; 74176; 74470; 76770; 76937; 77001; 78708; 80048; 80053; 80061; 81001; 82607; 82728; 82746; 82805; 82948; 83036; 83540; 83735; 83880; 83970; 84100; 84443; 84466; 84550; 85025; 85045; 85610; 85730; 87040; 87086; 93005; 93306; 93971; 94640; 94660; 94799; 96372; 99252; 99285; A9562; C1752; C1758; C1769; C2617; J0360; J0696; J1100; J1171; J1644; J1650; J1938; J1940; J2003; J2270; J2371; J2405; J2470; J2919; J7030; J7050; J7120; J7799

== ENCOUNTER 2024-06-06 14:09 | Inpatient (IN) | payer MEDICARE ==
[~2024-06-06] VITALS: Ht 170.2 cm; Wt 95.3 kg
[~2024-06-06 14:09] MED LIST changes: +CYMBALTA30 MG PO; +LASIX20 MG PO; +LEVOTHYROXINE75 MC1 PO; +MIRTAZAPINE15 MG PO; +[UNRECOGNIZED DRUG - OTHER] PO
[2024-06-06] MEDS ORDERED: SODIUM CHLORIDE FLUSH 10 ML SYR INJ PRN ×2 (14:45→16:30)
[2024-06-06 15:04] LABS: BASOPHILS % 0.2 % (0.0-1.0); EOSINOPHILS # (AUTO) 0.3 (0.0-0.4); EOSINOPHILS % 2.5 % (0.0-6.0); HEMATOCRIT 33.6 % (38.2-49.6); HEMOGLOBIN 10.3 g/dL (14.0-18.0); LYMPHOCYTES # (AUTO) 1.2 (1.0-3.2); LYMPHOCYTES % 10.2 % (18.0-39.1); MEAN CORPUSCULAR HEMOGLOBIN 24.1 pg (28-32); MEAN CORPUSCULAR HGB CONC 30.7 g/dL (31-35); MEAN CORPUSCULAR VOLUME 78.7 fL (81-99); MONOCYTES # (AUTO) 1.5 (0.2-0.8); MONOCYTES % 13.5 % (4.4-11.3); NEUTROPHILS # (AUTO) 8.4 (2.1-6.9); NEUTROPHILS % 73.2 % (38.7-80.0); PLATELET COUNT 218 x10e3/uL (140-360); RED BLOOD COUNT 4.27 x10e6/uL (4.3-5.7); WHITE BLOOD COUNT 11.42 x10e3/uL (4.8-10.8)
[2024-06-06 15:24] LABS: AMPHETAMINES SCREEN,URINE NEGATIVE (NEGATIVE); BENZODIAZEPINES SCREEN,URINE NEGATIVE (NEGATIVE); BILIRUBIN,URINE NEGATIVE (NEGATIVE); CANNABINOIDS SCREEN,URINE NEGATIVE (NEGATIVE); CLARITY,URINE CLOUDY (CLEAR); COCAINE SCREEN,URINE NEGATIVE (NEGATIVE); COLOR,URINE YELLOW (YELLOW); GLUCOSE, URINE NEGATIVE (NEGATIVE); KETONES,URINE NEGATIVE (NEGATIVE); LEUKOCYTE ESTERASE ,URINE MODERATE (NEGATIVE); METHADONE SCREEN, URINE NEGATIVE (NEGATIVE); NITRITE,URINE NEGATIVE (NEGATIVE); OPIATES SCREEN,URINE NEGATIVE (NEGATIVE); PH,URINE 5.5 (5 - 7); PHENCYCLIDINE SCREEN,URINE NEGATIVE (NEGATIVE); PROTEIN,URINE DIPSTICK 2+ (NEGATIVE); URINE UROBILINOGEN 0.2 mg/dL (0.2 - 1)
[2024-06-06 15:25] LABS: INR 2.02; PROTHROMBIN TIME 23.9 seconds (11.9-14.5)
[2024-06-06 15:27] LABS: BACTERIA,URINE MODERATE /HPF; EPITHELIAL CELLS,URINE FEW /LPF; PARTIAL THROMBOPLASTIN TIME 66.5 seconds (23.8-35.5); RBC,URINE >50 /HPF (0-5); WBC,URINE (MAN) >50 /HPF (0-5)
[2024-06-06 15:35] LABS: ALBUMIN 2.4 g/dL (3.5-5.0); ALBUMIN/GLOBULIN RATIO 0.6 (0.8-2.0); ANION GAP 19.9 mmol/L (8-16); BILIRUBIN,TOTAL 1.3 mg/dL (0.2-1.2); CALCIUM 8.8 mg/dL (8.4-10.2); CREATININE, SERUM 2.22 mg/dL (0.72-1.25); MAGNESIUM 1.5 MG/DL (1.3-2.1); PHOSPHORUS 3.7 MG/DL (2.3-4.7); POTASSIUM 3.9 mmol/L (3.5-5.1); TOTAL PROTEIN 6.3 g/dL (6.5-8.1)
[2024-06-06] MEDS ORDERED: ONDANSETRON HCL INJ 2MG/ML 2ML 2 MG/ML VIAL IV PRN (16:30)
[2024-06-06] MEDS ORDERED: POLYETHYLENE GLYCOL 3350 17 GM PACK PO PRN (17:30)
[2024-06-06] MEDS: CEFTRIAXONE 1 GM VIAL IM ONE (17:53)
[2024-06-06] MEDS ORDERED: ACETAMINOPHEN 325 MG TAB PO PRN (18:15)
[2024-06-06] MEDS ORDERED: ONDANSETRON HCL 4 MG ORAL DISINTEGRATING TAB PO PRN (18:15)
[2024-06-06] MEDS ORDERED: DEXTROSE 50% SYRINGE 50 ML IV PRN (18:15)
[2024-06-06] MEDS: INSULIN LISPRO 100 UNIT/1 ML 3ML VIAL SQ SCH (21:00)
[2024-06-06] MEDS: DONEPEZIL HCL 5 MG TAB PO SCH (21:00)
[2024-06-06] MEDS: ATORVASTATIN 40 MG TAB PO SCH (21:00)
[2024-06-06] MEDS: MIRTAZAPINE 15 MG TAB PO SCH (21:00)
[2024-06-06 22:45] VITALS: PULSE 79; RESP 18; TEMP 98.8
[2024-06-06 23:12] VITALS: BP 143/40; PULSE 66; RESP 20; TEMP 97.5; O2SAT 100
[2024-06-06 23:30] VITALS: BP 143/40; PULSE 66; RESP 20; TEMP 97.5; O2SAT 100
[2024-06-07] VITALS (8 sets, daily range): BP systolic 122–142; BP diastolic 37–48; PULSE 63–81; RESP 15–20; TEMP 97.6–98.7; O2SAT 92–100
[2024-06-07] MEDS ORDERED: IRBESARTAN150 MG PO (03:20)
[2024-06-07] MEDS ORDERED: FOLIC ACID0.4 MG PO (03:20)
[2024-06-07] MEDS ORDERED: MULTI-VITAMIN1 EACH PO (03:23)
[2024-06-07] MEDS: LEVOTHYROXINE SODIUM 75 MCG TAB PO SCH (06:17)
[2024-06-07 06:40] LABS: BASOPHILS % 0.3 % (0.0-1.0); EOSINOPHILS # (AUTO) 0.4 (0.0-0.4); EOSINOPHILS % 4.3 % (0.0-6.0); HEMATOCRIT 30.3 % (38.2-49.6); HEMOGLOBIN 9.4 g/dL (14.0-18.0); LYMPHOCYTES # (AUTO) 1.1 (1.0-3.2); LYMPHOCYTES % 12.4 % (18.0-39.1); MEAN CORPUSCULAR HEMOGLOBIN 24.4 pg (28-32); MEAN CORPUSCULAR VOLUME 78.7 fL (81-99); MONOCYTES # (AUTO) 1.3 (0.2-0.8); MONOCYTES % 13.8 % (4.4-11.3); NEUTROPHILS # (AUTO) 6.2 (2.1-6.9); NEUTROPHILS % 68.9 % (38.7-80.0); PLATELET COUNT 238 x10e3/uL (140-360); RED BLOOD COUNT 3.85 x10e6/uL (4.3-5.7); RED CELL DISTRIBUTION WIDTH 21.1 % (11.7-14.4); WHITE BLOOD COUNT 9.04 x10e3/uL (4.8-10.8)
[2024-06-07 07:14] LABS: ALBUMIN 2.1 g/dL (3.5-5.0); ALBUMIN/GLOBULIN RATIO 0.6 (0.8-2.0); ANION GAP 17.7 mmol/L (8-16); BILIRUBIN,TOTAL 1.1 mg/dL (0.2-1.2); CALCIUM 8.5 mg/dL (8.4-10.2); CREATININE, SERUM 1.9 mg/dL (0.72-1.25); POTASSIUM 3.7 mmol/L (3.5-5.1); TOTAL PROTEIN 5.5 g/dL (6.5-8.1)
[2024-06-07] MEDS: PANTOPRAZOLE SODIUM 20 MG TABLET.DR PO SCH (08:44)
[2024-06-07] MEDS: CEFTRIAXONE 2 GM in SODIUM CHLORIDE 0.9% 100 ML IV SCH (08:44)
[2024-06-07] MEDS: FUROSEMIDE 20 MG TAB PO SCH (08:44)
[2024-06-07] MEDS: EZETIMIBE 10 MG TAB PO SCH (08:44)
[2024-06-07] MEDS: DULOXETINE HCL 30 MG DELAYED RELEASE PO SCH (08:44)
[2024-06-07] MEDS: FENOFIBRATE 200 MG PO SCH (09:00)
[2024-06-07] MEDS: WARFARIN SOD 1 MG TAB PO SCH (17:04)
[2024-06-08 03:21] VITALS: BP 123/40; PULSE 72; RESP 18; TEMP 98.2; O2SAT 100
[2024-06-08 05:44] LABS: BASOPHILS % 0.3 % (0.0-1.0); EOSINOPHILS # (AUTO) 0.4 (0.0-0.4); HEMATOCRIT 27.2 % (38.2-49.6); HEMOGLOBIN 8.4 g/dL (14.0-18.0); LYMPHOCYTES # (AUTO) 1.4 (1.0-3.2); LYMPHOCYTES % 17.7 % (18.0-39.1); MEAN CORPUSCULAR HEMOGLOBIN 24.5 pg (28-32); MEAN CORPUSCULAR HGB CONC 30.9 g/dL (31-35); MEAN CORPUSCULAR VOLUME 79.3 fL (81-99); MONOCYTES # (AUTO) 1.2 (0.2-0.8); MONOCYTES % 15.8 % (4.4-11.3); NEUTROPHILS # (AUTO) 4.7 (2.1-6.9); NEUTROPHILS % 60.8 % (38.7-80.0); PLATELET COUNT 228 x10e3/uL (140-360); RED BLOOD COUNT 3.43 x10e6/uL (4.3-5.7); RED CELL DISTRIBUTION WIDTH 20.6 % (11.7-14.4); WHITE BLOOD COUNT 7.79 x10e3/uL (4.8-10.8)
[2024-06-08 06:07] LABS: INR 3.16; PROTHROMBIN TIME 33.9 seconds (11.9-14.5)
[2024-06-08 06:15] LABS: ALBUMIN 1.8 g/dL (3.5-5.0); ALBUMIN/GLOBULIN RATIO 0.6 (0.8-2.0); ANION GAP 14.5 mmol/L (8-16); CALCIUM 8.1 mg/dL (8.4-10.2); CREATININE, SERUM 1.88 mg/dL (0.72-1.25); POTASSIUM 3.5 mmol/L (3.5-5.1)
[2024-06-08 08:07] VITALS: BP 141/39; PULSE 71; RESP 20; TEMP 98.4; O2SAT 100
[2024-06-08] MEDS ORDERED: CEFTRIAXONE 1 GM in SODIUM CHLORIDE 0.9% 100 ML IV SCH (09:00)
[2024-06-08 09:08] VITALS: BP 141/39; PULSE 71; RESP 20; TEMP 98.4; O2SAT 100
[2024-06-08 12:12] VITALS: BP 147/53; PULSE 70; RESP 18; TEMP 98.2; O2SAT 100
[2024-06-08 17:39] VITALS: BP 135/45; PULSE 71; RESP 20; TEMP 97; O2SAT 100
[2024-06-09 12:28] LABS: FOLATE (REF LAB) 11.6 ng/mL (>3.0)
[2024-06-09] MEDS ORDERED: WARFARIN SOD 1 MG TAB PO SCH (17:00)
== END 2024-06-08 19:00 | DRG 690 ==
LOC: ER 14:18 → ERHOLD 16:28 → MED/SURG2 23:22 → OBSVTOIN 06-07 11:04
PROVIDERS: ADMIT Family Medicine Adult Medicine; ATTEND Family Medicine Adult Medicine
DX: N13.6 Pyonephrosis (principal); G93.40 Encephalopathy, unspecified; E46 Unspecified protein-calorie malnutrition; I82.612 Acute embolism and thrombosis of superficial veins of left upper extremity; J96.11 Chronic respiratory failure with hypoxia; I27.23 Pulmonary hypertension due to lung diseases and hypoxia; J84.10 Pulmonary fibrosis, unspecified; G20.C Parkinsonism, unspecified; N17.9 Acute kidney failure, unspecified; E11.22 Type 2 diabetes mellitus with diabetic chronic kidney disease; E11.51 Type 2 diabetes mellitus with diabetic peripheral angiopathy without gangrene; I12.9 Hypertensive chronic kidney disease with stage 1 through stage 4 chronic kidney disease, or unspecified chronic kidney disease; N18.32 Chronic kidney disease, stage 3b; E78.5 Hyperlipidemia, unspecified; I48.91 Unspecified atrial fibrillation; E03.9 Hypothyroidism, unspecified; G30.9 Alzheimer's disease, unspecified; F02.80 Dementia in other diseases classified elsewhere, unspecified severity, without behavioral disturbance, psychotic disturbance, mood disturbance, and anxiety; R53.81 Other malaise; K40.90 Unilateral inguinal hernia, without obstruction or gangrene, not specified as recurrent; K80.20 Calculus of gallbladder without cholecystitis without obstruction; Z79.01 Long term (current) use of anticoagulants; Z79.84 Long term (current) use of oral hypoglycemic drugs; Z79.890 Hormone replacement therapy; Z86.73 Personal history of transient ischemic attack (TIA), and cerebral infarction without residual deficits; Z95.1 Presence of aortocoronary bypass graft; Z95.3 Presence of xenogenic heart valve; Z88.5 Allergy status to narcotic agent; Z68.32 Body mass index [BMI] 32.0-32.9, adult
CPT/HCPCS: 36415; 70450; 71250; 74176; 80053; 80307; 81001; 82607; 82746; 82948; 83605; 83735; 83880; 84100; 84425; 85025; 85610; 85730; 87040; 87086; 93005; 93925; 94760; 99252; 99284; G0378; J0696; J7050